=== PATIENT | female | born 1940 | race Caucasian/White ===

== ENCOUNTER 2024-11-01 01:44 | Emergency (ER) | payer MEDICARE, SELFPAY ==
--- NOTE | ~2024-11-01 | CT_ITS ---
CT of the Abdomen and Pelvis: Indication: Abdominal pain Technique: 2.5 mm axial scans were obtained through the abdomen and pelvis following intravenous adm inistration of 100 cc of Omnipaque 350. Dose reduction technique was used on this scan by utilizing a utomated exposure control and iterative reconstruction technique. The dose-length product (DLP) was 5 32.41 mGy-cm. Findings: Scans through the lung bases are unremarkable. Small hepatic cyst present. Mild intrahepatic and extrahepatic biliary dilatation is most likely rela zeferino to prior cholecystectomy. The spleen, pancreas, the adrenal glands are within normal limits. Bila teral benign-appearing renal cystic lesions are present, some which demonstrate single thin septation . There are atherosclerotic calcifications of the aorta. No lymphadenopathy. Prior extensive colectomy with probable enterocolonic anastomosis at the sigmoid colon. Additional sm all bowel anastomosis present. There are dilated loops of small bowel with fecalization of contents w hich are possibly related to the small bowel anastomosis. Findings are compatible with small bowel ob struction. Images through the pelvis were performed. There is a low ventral midline hernia containing a small an terior portion of the urinary bladder as well as one wall segment of the sigmoid colon. Trace pelvic free fluid noted. There is posterior spinal fixation from L4 to 5. Chronic compression fracture of T11 present. Impression: Small bowel obstruction, with transition point possibly related to small bowel anastomosis. Low ventral midline hernia containing and anterior portion of the urinary bladder as well as one wall of a segment of the sigmoid colon. Trace pelvic free fluid. Additional chronic findings, as above. Reviewed, dictated and finalized at [facility]. Impression: Small bowel obstruction, with transition point possibly related to small bowel anastomosis. Low ventral midline hernia containing and anterior portion of the urinary bladd er as well as one wall of a segment of the sigmoid colon. Trace pelvic free fluid. Additional chronic findings, as above.
[2024-11-01 01:45] VITALS: BP 200/86; PULSE 75; RESP 20; TEMP 36.1; O2SAT 96
--- NOTE | 2024-11-01 01:52 | ED_ITS ---
HPI - Abdominal Pain General Chief Complaint: Abdominal Pain Stated Complaint: Abd Pain Time Seen by Provider: 11/01/24 01:52 Source: patient Mode of arrival: ambulatory Limitations: no limitations History of Present Illness HPI narrative: 84 years old white female came to the ED with her from home by private car complaining of abdominal pain started 3-4 hour prior to arrival associated with nausea and vomiting once. History of cholecystectomy, colon resection, hysterectomy. Patient denies any fever or chills. Patient denies radiation of pain, pain get worse with any movement and nothing make it better. Related Data Allergies Allergy/AdvReac Type Severity Reaction Status Date / Time fentanyl Allergy Unknown Unknown Verified 11/01/24 01:59 Penicillins Allergy Unknown Unknown Verified 11/01/24 01:59 Tetanus Vaccines and Toxoid Allergy Unknown Unknown Verified 11/01/24 01:59 Review of Systems 2 Review of Systems: All systems reviewed & are unremarkable except as noted in HPI and below Exam 2 Narrative: General appearance: Well-developed, well-nourished Skin: Normal color Head: Normocephalic, nontraumatic Eyes: Clear conjunctiva ENT: Oropharynx normal, ears normal, nose normal Neck: Supple, nontender Chest and respiratory: Airway patent, no respiratory distress, no accessory muscle use Heart: Regular rate/rhythm Abdomen: Soft, Moderate tenderness right abdomen, guarding and rebound, no organomegaly, quiet bowel sounds Vascular: Normal peripheral pulses, normal capillary refill. Musculoskeletal: Normal range of motion, nontender back Neurologic: Alert and oriented ×3, [employer] is normal as tested, no gross motor deficit Course Consultations Consultation #1: Dr. Summers [facility] at [facility] who accepted patient transfer Date: 11/01/24 Time: 06:34 Vital Signs Vital signs: Vital Signs Temperature 36.1 C L 11/01/24 01:45 Pulse Rate 75 11/01/24 01:45 Respiratory Rate 20 11/01/24 01:45 Blood Pressure 200/86 H 11/01/24 01:45 Pulse Oximetry 96 11/01/24 01:45 Oxygen Delivery Room Air 11/01/24 01:45 Temperature 36.6 C 11/01/24 06:09 Pulse Rate 79 11/01/24 06:09 Respiratory Rate 14 11/01/24 06:09 Blood Pressure 130/53 L 11/01/24 06:09 Pulse Oximetry 98 11/01/24 06:09 Oxygen Delivery Room Air 11/01/24 06:09 MDM - Abdominal Pain MDM Narrative Medical decision making narrative: patient presents with abdominal pain Vital signs showing blood pressure 200/86 otherwise within normal limit Physical examination showing diffuse abdominal tenderness in mainly on the right side with guarding in, healing open wound at the mid abdomen Differential diagnosis include constipation, diverticulitis, colitis, ischemic colitis, urinary tract infection Blood workup today includes CBC, CMP, lipase, troponin showed WBC of 13.8, lactic acid of 2.3 otherwise insignificant abnormalities Urinalysis showed it no evidence of infection EKG on arrival showed normal sinus rhythm at 72 beats per minute with short AR interval, right axis deviation, 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 Diagnosis small-bowel obstruction Transferred to Differential Diagnosis Differential diagnosis: Likely abdominal pain, acute appendicitis, constipation, diverticulitis, pancreatitis and small bowel obstruction Medical Records Attestation: I reviewed the patient's medical records. Lab Data Attestation: I reviewed the patient's lab results. 11/01/24 02:34 11/01/24 02:34 Labs: Lab Results 11/01/24 11/01/24 Range/Units 02:34 05:00 WBC 13.8 H (4.8-10.8) K/mm3 RBC 4.44 (4.20-5.40) M/mm3 Hgb 12.9 (11.7-13.8) g/dL Hct 40.3 (35.0-42.0) % MCV 90.8 (78.0-102.0) fL MCH 29.1 (27.0-31.0) pg MCHC 32.0 (32-36) g/dL RDW 13.2 (11.6-14.4) % Plt Count 150 (150-420) K/mm3 MPV 12.6 H (9.2-11.8) fl Immature Gran % (Auto) 0.5 H (0.0-0.0) % Neut % (Auto) 84.8 H (50.0-70.0) % Lymph % (Auto) 8.4 L (18.0-42.0) % [place] % (Auto) 4.9 (2.0-11.0) % Eos % (Auto) 1.2 (1.0-6.0) % Baso % (Auto) 0.2 (0.0-1.0) % Lymph # (Auto) 1.16 (1.10-4.50) K/mm3 [place] # (Auto) 0.68 (0.10-0.90) K/mm3 Eos # (Auto) 0.17 (0.02-0.50) K/mm3 Baso # (Auto) 0.03 (0.00-0.10) K/mm3 Abs Immat Gran (auto) 0.07 H (0.00-0.00) K/mm3 Absolute Neuts (auto) 11.73 H (1.70-7.20) K/mm3 Absolute Nucleated RBC 0.00 (0.00-0.00) K/mm3 Nucleated RBC % 0.0 (0-0.0) % Sodium 134 L (137-145) mmol/L Potassium 3.9 (3.4-5.0) mmol/L Chloride 103 (98-107) mmol/L Carbon Dioxide 24 (22-30) mmol/L Anion Gap 7 (4-12) mmol/L BUN 16 (7-17) mg/dL Creatinine 0.91 (0.7-1.0) mg/dL Estim Creat Clear Calc 35 ml/min Estimated GFR 59 (59 - ) Glucose 199 H (65-110) mg/dL Calculated Osmolality 285 (285-295) mOsm/kg Lactic Acid 2.3 H (0.4-2.0) mmol/L Calcium 9.0 (8.4-10.2) mg/dL Total Bilirubin 0.7 (0.2-1.3) mg/dL AST 35 (14-36) U/L ALT 32 (6-35) U/L Alkaline Phosphatase 77 (38-126) U/L Troponin I < 0.012 (0.000-0.034) ng/mL Total Protein 7.3 (6.3-8.2) g/dL Albumin 4.3 (3.5-5.1) g/dL Lipase 60 (23-300) U/L Urine Color Light yellow (Yellow) Urine Appearance Clear (Clear) Urine pH 6.0 (5.0-8.0) Ur Specific [place] <= 1.005 L (1.010-1.020) Urine Protein Negative (Negative) Urine Glucose (UA) Trace H (Negative) Urine Ketones Negative (Negative) Ur Blood (Man) Negative (Negative) Urine Nitrate Negative (Negative) Urine Bilirubin Negative (Negative) Urine Urobilinogen 0.2 (0.2-1.0) mg/dL Leukocyte Esterase Rfl Negative (Negative) MAKENNA/UL Imaging Data Radiologist's impression: ITS Impressions Abdomen/Pelvis CT 11/01/24 05:51 Impression: Small bowel obstruction, with transition point possibly related to small bowel anastomosis. Low ventral midline hernia containing and anterior portion of the urinary bladder as well as one wall of a segment of the sigmoid colon. Trace pelvic free fluid. Additional chronic findings, as above. 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
--- NOTE | 2024-11-01 01:53 | ECG_ITS ---
Test Date: 2024-11-01 02:43:04 Measurements Intervals [place] Rate: 72 P: 38 VA: 116 QRS: 95 QRSD: 118 T: 67 QT: 439 QTc: 481 Interpretive Statements SINUS RHYTHM WITH SHORT VA INTERVAL BORDERLINE RIGHT AXIS DEVIATION [QRS AXIS > 90] PROBABLE INFERIOR MYOCARDIAL INFARCTION , PROBABLY OLD [35 ms Q WAVE IN II/aVF] ABNORMAL ECG No previous ECG available for comparison Electronically Signed On 11-01-2024 08:05:15 CDT by Ti Hendrix M.D.
--- OUTSIDE RECORDS SUMMARY | 2024-11-01 01:58 | XMS_ITS | Data Portability ---
Author Organization [facility], [address] [place] [address] [place]rology ([place]) Address [address] 4[address] [place] [address] Care Team Providers Care Deputy Juvenile Officer Name Role Phone CLAUDE WILLS Primary Care Provider Assessment Encounter Date Assessment Date Assessment LastModified by Organization Details LastModified Time 06/05/2024 06/05/2024 Due to her severe pain and her Hx of colon cancer, hernias, bowel obstructions, I would like to do a stat CT abd/pelvis with contrast. Not available 06/05/2024 16:28:52 06/19/2024 06/19/2024 We will try donepezil 5 mg q.h.s. and see her back in 6 weeks. May consider risperidone if not working or if augmentation is needed. terry Not available 06/19/2024 13:06:19 08/10/2024 08/10/2024 We will do the lorazepam b.i.d. at 0.5 mg and see her back as scheduled in 3 months. jessicasana [email or web address] Not available 08/10/2024 14:24:39 10/13/2024 10/13/2024 We will do a wound culture as well as a CBC and a BMP and follow up based on results. She may need ID referral. [email or web address] [email or web address] Not available 10/13/2024 12:03:10 10/28/2024 10/28/2024 Assessment and plan: Chronic non-healing wound. I suspect the mesh is infected. I will need to take her to the operating room for an open wound exploration with removal of the mesh that is exposed. I am trying to minimize the risk of having to remove the entire abdominal wall mesh that was placed in the abdomen many years ago . I have reviewed the CT scan of the abdomen and pelvis and there is air bubbles and possibly mesh exposed underneath the wound. This is never going to heal without removing the foreign object which is the mesh. Patient will do dry dressing changes until I can explore the wound properly with IV sedation local anesthetic. [email or web address] Not available 10/28/2024 12:22:34 Plan of Treatment Reminders Order Date Submit Date Provider Last Modified By Organization Details Last Modified Time Details Appointments Establi shed Patient 20.EST 2024 01:20P M Dr. Claude Wills Not available Not available Not available [facility] .SURG 2024 09:30[facility] Not available Not available Not available [facility] .SURG 2024 09:30A M Dr. Dmitry Roa Not available Not available Not available Nurse Surgery Block 30.SURG 2024 09:[address] M Dr[address] Dmitry Roa Not available Not available Not available Lab CBC w/ auto diff 2024 025 [facility], [address] [place] [address], [id number], 10/14/2024 15:23:26 BMP, serum or plasma 2024 025 [facility], [address] [place] [address], [id number], 10/14/2024 16:18:32 culture , aerobic 2024 025 [facility], [address] [place] [address], [id number], 10/27/2024 04:25:18 Referral None recorde d. Procedures None recorde d. Surgeries None recorde d. Imaging CT, abdomen + pelvis, w/ contras t - Call with results to Jerome stephen cell @ 2023 024 [facility] (Radiology), [facility] [address], [place], [address], 06/06/2024 16:37:08 Medication Orders glimepi ride 1 mg tablet 2024 025 [email or web address] 5 [facility] #[id number], [address], [place], [id number], 10/13/2024 12:02:50 cyclobe nzaprin e 10 mg tablet 2024 025 [facility] #[id number], [address], [place], [phone], 10/13/2024 11:16:28 lorazep am 0.5 mg tablet 2024 025 [facility] #[id number], [address], [place], [phone], 08/10/2024 12:55:15 donepez il 5 mg tablet 2024 025 [facility] #[id number], [address], [place], [id number], 08/10/2024 12:26:41 Patient TargetsNo targets recorded. Patient InstructionsNo instructions recorded. Reason for Referral None Reported. Results Created Date Observation Date Name Description Value Unit Range Abnormal Flag Note LastModifiedBy Organization Detail LastModifiedTime 05/11/2005/11/2024 hemog lobin A1C, finge rstic k fingerstick A1C endo Not Available [facility] [address] [place] [address], [id number], 05/11/2024 16:16:11 05/11/2005/11/2024 hemog lobin A1C, finge rstic k hemoglobin A1C, finger 7.4 %_A1C 4.3 - 5.6 high Not Available [facility] [address] [place] [address], [id number], 05/11/2024 16:16:11 05/11/20 24 05/11/2024 hemog lobin A1C, finge rstic k fingerstick estimated ave [address] Not Available [facility] [address], [place], [address], 05/11/2024 16:16:11 10/14/19 25 10/16/2024 C WOUND wound culture (swab) with gram stain (ne abnormal Print Date/ Time: 10:38 CDT Patie nt: ANDREW R, MELISSA TELLESE Micro biolo gy - Wound s and Tissu es Legen d: c=Cor recte d, F=Res ult Comme nt, S=Nya cepti ble, I=Int ermed iate, R=Res istan t, N/A=N ot Appli cable PROCE DURE: Wound Cultu re (swab ) ACCES VICKY: 369 with Gram Stain [] SOURC E: Wound BODY SITE: Abdom en COLLE CTED DATE/ TIME: 2024 10:37 CDT RECEI RIK DATE/ TIME: 2024 17:18 CDT START DATE/ TIME: 2024 17:18 CDT FREE TEXT SOURC E: Abdom inal wall swab FI NAL REPOR TS Final Repor t [] Verif ied Date/ Time: 10:38 CDT Moder ate Pseud omona s aerug inosa and Organ isms consi stent with xiomy l skin conor isola zeferino inclu ding: Many dipht heroi ds [place] ELIMI NARY REPOR TS Preli minar y Repor t [] Verif ied Date/ Time: 18:16 CDT Moder ate Possi ble Pseud omona s aerug inosa Ident ifica tion and susce ptibi lity to follo w. Many dipht heroi ds Cultu re reinc ubate d Preli minar y Repor t [] Verif ied Date/ Time: 13:58 CDT Moder ate Possi ble Pseud omona s aerug inosa Ident ifica tion and susce ptibi lity to follo w. Cultu re reinc ubate d ST AINS/ PREPA RATIO NS GS [] Verif ied Date/ Time: 2024 23:06 CDT Rare (<1/h pf) neutr ophil s Moder ate (6-30 /hpf) Gram Posit antwan Rods Moder ate (6-30 /hpf) Gram Negat antwan Rods Moder ate (6-30 /hpf) Gram Posit antwan Cocci in pairs , chain s, and clust ers UMANA SCEPT IBILI TY RESUL TS Pseud omona s aerug inosa Antib iotic MINT Cefep zainab Susce ptibl e Cefta zidim e Susce ptibl e Levof loxac in Susce ptibl e Merop enem Susce ptibl e Piper acill in-ta zobac guerrero Susce ptibl e Tobra mycin Susce ptibl e Not Available [place] Only - [facility] [address] [facility], [place], [address], 10/16/2024 11:38:53 10/14/19 25 10/16/2024 C WOUND wound culture (swab) with gram stain (ne abnormal Print Date/ Time: 025 10:37 CDT Patie nt: ANDREW RMELISSA RINE Micro biolo gy - Wound s and Tissu es Legen d: c=Cor recte d, F=Res ult Comme nt, S=Yna cepti ble, I=Int ermed iate, R=Res istan t, N/A=N ot Appli cable PROCE DURE: Wound Cultu re (swab ) ACCES VICKY: 9007 369 with Gram Stain [] SOURC E: Wound BODY SITE: Abdom en COLLE CTED DATE/ TIME: 2024 10:37 CDT RECEI RIK DATE/ TIME: 2024 17:18 CDT START DATE/ TIME: 2024 17:18 CDT FREE TEXT SOURC E: Abdom inal wall swab WV ELIMI NARY REPOR TS Preli minar y Repor t [] Verif ied Date/ Time: 18:16 CDT Moder ate Possi ble Pseud omona s aerug inosa Ident ifica tion and susce ptibi lity to follo w. Many dipht heroi ds Cultu re reinc ubate d Preli minar y Repor t [] Verif ied Date/ Time: 13:58 CDT Moder ate Possi ble Pseud omona s aerug inosa Ident ifica tion and susce ptibi lity to follo w. Cultu re reinc ubate d ST AINS/ PREPA RATIO NS GS [] Verif ied Date/ Time: 2024 23:06 CDT Rare (<1/h pf) neutr ophil s Moder ate (6-30 /hpf) Gram Posit antwan Rods Moder ate (6-30 /hpf) Gram Negat antwan Rods Moder ate (6-30 /hpf) Gram Posit antwan Cocci in pairs , chain s, and clust ers UMANA SCEPT IBILI TY RESUL TS Pseud omona s aerug inosa Antib iotic MINT Cefep zainab Susce ptibl e Cefta zidim e Susce ptibl e Levof loxac in Susce ptibl e Merop enem Susce ptibl e Piper acill in-ta zobac guerrero Susce ptibl e Tobra mycin Susce ptibl e Not Available [place] Only - [facility] [address] [facility], [place], [address], 10/16/2024 11:37:28 10/14/19 25 10/15/2024 C WOUND wound culture (swab) with gram stain (ne abnormal Print Date/ Time: 18:16 CDT Patie nt: ANDREW RMELISSA RINE Micro biolo gy - Wound s and Tissu es Legen d: c=Cor recte d, F=Res ult Comme nt, S=Nya cepti ble, I=Int ermed iate, R=Res istan t, N/A=N ot Appli cable PROCE DURE: Wound Cultu re (swab ) ACCES VICKY: 369 with Gram Stain [] SOURC E: Wound BODY SITE: Abdom en COLLE CTED DATE/ TIME: 2024 10:37 CDT RECEI RIK DATE/ TIME: 2024 17:18 CDT START DATE/ TIME: 2024 17:18 CDT FREE TEXT SOURC E: Abdom inal wall swab WV ELIMI NARY REPOR TS Preli minar y Repor t [] Verif ied Date/ Time: 18:16 CDT Moder ate Possi ble Pseud omona s aerug inosa Ident ifica tion and susce ptibi lity to follo w. Many dipht heroi ds Cultu re reinc ubate d Preli minar y Repor t [] Verif ied Date/ Time: 13:58 CDT Moder ate Possi ble Pseud omona s aerug inosa Ident ifica tion and susce ptibi lity to follo w. Cultu re reinc ubate d ST AINS/ PREPA RATIO NS GS [] Verif ied Date/ Time: 2024 23:06 CDT Rare (<1/h pf) neutr ophil s Moder ate (6-30 /hpf) Gram Posit antwan Rods Moder ate (6-30 /hpf) Gram Negat antwan Rods Moder ate (6-30 /hpf) Gram Posit antwan Cocci in pairs , chain s, and clust ers Not Available [place] Only - [facility] [address] [place] [address], [address], 10/15/2024 19:16:47 10/14/19 25 10/15/2024 C WOUND wound culture (swab) with gram stain (ne abnormal Print Date/ Time: 13:58 CDT Patie nt: MELISSA COLLADO RINE Micro biolo gy - Wound s and Tissu es Legen d: c=Cor recte d, F=Res ult Comme nt, S=Nya cepti ble, I=Int ermed iate, R=Res istan t, N/A=N ot Appli cable PROCE DURE: Wound Cultu re (swab ) ACCES VICKY: 369 with Gram Stain [] SOURC E: Wound BODY SITE: Abdom en COLLE CTED DATE/ TIME: 2024 10:37 CDT RECEI RIK DATE/ TIME: 2024 17:18 CDT START DATE/ TIME: 2024 17:18 CDT FREE TEXT SOURC E: Abdom inal wall swab WV ELIMI NARY REPOR TS Preli minar y Repor t [] Verif ied Date/ Time: 025 13:58 CDT Moder ate Possi ble Pseud omona s aerug inosa Ident ifica tion and susce ptibi lity to follo w. Cultu re reinc ubate d ST AINS/ PREPA RATIO NS GS [] Verif ied Date/ Time: 2024 23:06 CDT Rare (<1/h pf) neutr ophil s Moder ate (6-30 /hpf) Gram Posit antwan Rods Moder ate (6-30 /hpf) Gram Negat antwan Rods Moder ate (6-30 /hpf) Gram Posit antwan Cocci in pairs , chain s, and clust ers Not Available [place] Only - [facility] [address], [address], 10/15/2024 14:58:19 10/14/19 25 10/14/2024 C WOUND wound culture (swab) with gram stain (ne abnormal Print Date/ Time: 2024 23:06 CDT Patie nt: TUCKE R, MELISSA A GISELA RINE Micro biolo gy - Wound s and Tissu es Legen d: c=Cor recte d, F=Res ult Comme nt, S=Nya cepti ble, I=Int ermed iate, R=Res istan t, N/A=N ot Appli cable PROCE DURE: Wound Cultu re (swab ) ACCES VICKY: 369 with Gram Stain [] SOURC E: Wound BODY SITE: Abdom en COLLE CTED DATE/ TIME: 2024 10:37 CDT RECEI RIK DATE/ TIME: 2024 17:18 CDT START DATE/ TIME: 2024 17:18 CDT FREE TEXT SOURC E: Abdom inal wall swab ST AINS/ PREPA RATIO NS GS [] Verif ied Date/ Time: 2024 23:06 CDT Rare (<1/h pf) neutr ophil s Moder ate (6-30 /hpf) Gram Posit antwan Rods Moder ate (6-30 /hpf) Gram Negat antwan Rods Moder ate (6-30 /hpf) Gram Posit antwan Cocci in pairs , chain s, and clust ers Not Available [place] Only - [facility] [address] [facility], [place], [address], 10/15/2024 00:06:17 06/05/20 24 06/05/2024 XR, chest , 1 view No observ ation record ed. Not Available 13:43:10 06/05/20 24 06/05/2024 XR, chest , 1 view No observ ation record ed. Not Available 13:43:10 06/06/20 24 06/06/2024 CT, abdom en + pelvi s, w/ contr ast No observ ation record ed. [email or web address] [facility] [address] [place], [address], 06/21/2024 19:30:54 06/06/20 24 06/06/2024 CT, abdom en + pelvi s, w/ contr ast No observ ation record ed. [facility] [address] [place], [address], 06/16/2024 13:43:59 06/19/19 25 06/05/2024 CT, abdom en + pelvi s, w/ contr ast No observ ation record ed. [facility] (Radiology) [address], [place], [address], 06/19/2024 11:05:03 06/19/1910 0606/05/2024 CT, abdom en + pelvi s, w/ contr ast No observ ation record ed. [facility] (Radiology) [address], [place], [address], 06/19/2024 11:05:03 07/27/19 25 07/27/2024 CT, abdom en + pelvi s, w/ contr ast No observ ation record ed. [facility] - Radiology [address] [place], [address], 08/05/2024 20:04:14 Result Notes None recorded. Problems Name Problem SNOMED Code Status Onset Date Resolution Date Notes Provider Name and Address Organization Details Recorded Time Chronic obstructiv e pulmonary disease 54292484 Active Not Available [facility] 4 14:54:00 Chronic kidney disease stage 3A 622989727 Active Not Available [facility] 4 14:54:12 Type 2 diabetes mellitus 87714516 Active Not Available [facility] 4 14:54:16 Moderate dementia 7504927533728 00 Active 2023 Claude Wills MD [address] [place] [address], [address] , [facility] 4 14:55:09 Adult health examinatio n Active 2023 Claude Wills MD [address] [place] [address], [address] , [facility] 4 14:57:20 History of malignant neoplasm of colon 274146292 Active 2023 Claude Wills MD [address] [place] [address], [address] , [facility] 4 14:58:19 History of malignant neoplasm of ovary 320471491 Active 2023 Claude Wills MD [address] [place] [address], [phone] , [facility] 4 14:58:33 Disorder of kidney due to diabetes mellitus 688570384 Active 2023 Yamilex solorzano, [facility] 4 01:30:51 Primary gonarthros is, bilateral 054769028 Active 2023 Lazara Robison PA-C [address] , [place], [address] , [facility] 4 14:21:54 Allergic rhinitis 68974376 Active 2023 Claude Wills MD [address] , [place], [address] , [facility] 4 15:45:07 Chronic thoracic back pain 0000074180572 03 Active 2023 Claude Wills MD [address] , [place], [address] , [facility] 4 15:45:58 Right lower quadrant pain 818665839 Active 2023 Claude Wills MD [address] , [facility] [place] [place], [address] , [facility] 4 16:14:26 Local infection of wound 76135345 Active 2024 [facility] 5 17:41:35 Generalize d anxiety disorder 79113987 Active 2024 Claude Wills MD [address] [facility], [facility] [place], [address] , [facility] 5 14:08:06 Rectal hemorrhage 12512523 Active 2024 Claude Wills MD [address] , [facility] [place] [place], [address] , [facility] 5 11:14:30 Open wound of abdomen 785627117 Active 2024 Claude Wills MD [address] , [place], [address] , [facility] 11:14:54 Problem Notes None recorded. Procedures Surgical History Date Name Laterality Status Provider Name and Address Organization Details Recorded Time 024 SC Viscosupplementation II completed Zuri Laquita [facility] 04/21/2024 10:06:06 Imaging Results Imaging Date Name Status LastModified by Organiz ation Details LastModified Time 06/05/2024 XR, chest, 1 view completed Information not available 06/16/2024 13:43:10 06/05/2024 XR, chest, 1 view completed Information not available 06/16/2024 13:43:10 06/06/2024 CT, abdomen + pelvis, w/ contrast completed [address] Radiology [address] [place], [address], 06/21/2024 19:30:54 06/06/2024 CT, abdomen + pelvis, w/ contrast completed [facility]iology [address] [place], [address], 06/16/2024 13:43:59 06/05/2024 CT, abdomen + pelvis, w/ contrast completed [facility] (Radiology) [address] [place], [address], 06/19/2024 11:05:03 06/05/2024 CT, abdomen + pelvis, w/ contrast completed [facility] (Radiology) [place], [address], 06/19/2024 11:05:03 07/27/2024 CT, abdomen + pelvis, w/ contrast completed [facility] [address] [place], [address], 08/05/2024 20:04:14 Procedure Notes None recorded. Medical Equipment None Reported. Allergies Allergen ID Allergen Name Allergen Category Reaction Reaction Severity Criticality Documentation Date Start Date Code Code System Note Provider Name and Address Organization Details Recorded Time 1576696 tetanus and diphtheri a toxoids, adsorbed, adult medicatio n anaphylax is Not available Not available 07/17/20232008 41731 UNK React ion: Anaph ylaxi s; Not Available [facility] 4 03:56:42 6654127 codeine medicatio n anaphylax is Not available Not available 07/17/20232007 2670 RxNorm React ion: Anaph ylaxi s; Not Available [facility] 4 03:56:43 1903551 Product containin g penicilli n (product) medicatio n anaphylax is Not available Not available 07/17/20232007 53113 8001 SNOMED React ion: Anaph ylaxi s; Not Available [facility] 4 03:56:43 968335 Cholester ol Managemen t medicatio n Not available Not available Not available 07/15/20232008 49634 96 RxNorm React ion: Other : liver issue s/gisele thly sick; Not Available [facility] 4 21:47:44 719193 wheat preparati on food,medi cation Not available Not available Not available 07/15/20232007 25450 52 RxNorm React ion: Other : exace rbate s diver ticul itis; Comme nt: Wheat ; Not Available [facility] 4 21:47:44 874327 Substance with sulfonami de structure and antibacte rial mechanism of action (substanc e) medicatio n Not available Not available Not available 07/15/20232015 84692 8003 SNOMED Not Available [facility] 4 21:47:46 Medications Name Sig Start Date Stop Date Status Note LastModified by Organization Details LastModified Time cyclobenzap rine 10 mg tablet TAKE 1 TABLET BY MOUTH THREE TIMES DAILY NEEDED active Not Available Not Available No t Available donepezil 5 mg tablet TAKE 1 TABLET BY MOUTH EVERY DAY 08/10 completed Not Available Not Available Not Available Nystop 100,000 unit/gram topical powder APPLY TO AFFECTED AREAS TWICE DAILY X 2 WEEKS THEN CALL PROVIDER FOR FOLLOW UP 02/10 completed Not Available Not Available Not Available omeprazole 40 mg capsule,del ayed release TAKE 1 CAPSULE BY MOUTH EVERY DAY active Not Available Not Available No t Available glimepiride 1 mg tablet TAKE 1 TABLET BY MOUTH EVERY DAY active Not Available Not Available No t Available hydrocortis one 2.5 % topical cream with perineal applicator active Not Available Not Available N ot Available lorazepam 0.5 mg tablet TAKE 1 TABLET BY MOUTH TWICE DAILY NEEDED active Not Available Not Available No t Available OneTouch Ultra Test strips USE TO TEST 3 TIMES DAILY 2023 active Not Available Not Available Not Avai lable montelukast 10 mg tablet TAKE 1 TABLET BY MOUTH EVERY DAY active Not Available Not Available No t Available levofloxaci n 500 mg tablet take one tablet by mouth daily for 21 days 2024 active Not Available Not Available Not Avai lable ketoconazol e 2 % topical cream APPLY THIN LAYER TOPICALLY TO THE AFFECTED AREA TWICE DAILY NEEDED active Not Available Not Available No t Available metformin ER 500 mg tablet,exte nded release 24 hr TAKE 1 TABLET BY MOUTH DAILY 02/10 completed Not Available Not Available Not Available memantine 10 mg tablet TAKE 1 TABLET BY MOUTH TWICE DAILY 05/11 completed Not Available Not Available Not Available memantine 5 mg tablet TAKE 1 TABLET BY MOUTH TWICE DAILY 02/10 completed Not Available Not Available Not Available OneTouch Ultra2 Meter USE DIRECTED TO TEST SUGARS active Not Available Not Available No t Available OneTouch Delica Plus Lancet 33 gauge USE TO TEST FOUR TIMES DAILY active Not Available Not Available No t Available Vitals Date Recorded Body height Body mass index (BMI) Body weight Body temperature Heart rate Oxygen saturation Oxygen saturation in Arterial blood by Pulse oximetry Systolic blood pressure Diastolic blood pressure Provider Name and Address Organization Details Last Updated DateTime 4 147.32 cm 30.4 kg/m2 30416.0 5 g 97.7 [degF] 95 /min 94 % 94 % 154 mm[Hg] 92 mm[Hg] Carolina Carter [facility] 4 15:27:51 Date Recorded Body height Body mass index (BMI) Body weight Body temperature Heart rate Oxygen saturation Oxygen saturation in Arterial blood by Pulse oximetry Systolic blood pressure Diastolic blood pressure Provider Name and Address Organization Details Last Updated DateTime 5 147.32 cm 29.5 kg/m2 22129.5 2 g 98.1 [degF] 81 /min 98 % 98 % 144 mm[Hg] 88 mm[Hg] [facility] 5 12:00:14 Date Recorded Body height Body mass index (BMI) Body weight Body temperature Heart rate Oxygen saturation Oxygen saturation in Arterial blood by Pulse oximetry Systolic blood pressure Diastolic blood pressure Provider Name and Address Organization Details Last Updated DateTime 5 147.32 cm 30.3 kg/m2 24676.8 9 g 97.5 [degF] 80 /min 97 % 97 % 136 mm[Hg] 78 mm[Hg] Grace Lisa [facility] 5 12:25:07 Date Recorded Body height Body temperature Heart rate Oxygen saturation Oxygen saturation in Arterial blood by Pulse oximetry Body mass index (BMI) Body weight Systolic blood pressure Diastolic blood pressure Provider Name and Address Organization Details Last Updated DateTime 5 147.32 cm 99.7 [degF] 84 /min 97 % 97 % 29.7 kg/m2 80815.1 2 g 138 mm[Hg] 78 mm[Hg] [facility] 5 10:44:26 Date Recorded Body height Body mass index (BMI) Body weight Systolic blood pressure Diastolic blood pressure Provider Name and Address Organization Details Last Updated DateTime 10/28/2024 147.32 cm 30.5 kg/m2 88663.85 g 172 mm[Hg] 75 mm[Hg] Zuleima Ahn bao [facility] 5 11:56:51 Social History None recorded. Functional Status None recorded. Mental Status None recorded. Family History Nothing Reported. Medical History No medical history recorded. Gynecological HistoryNo gynecological history recorded. Obstetrics History GPAL:G 0 P 0 0 0 0 Past Encounters Encounter ID Performer Location Encounter Start Date Encounter Closed Date Diagnosis/Indication Diagnosis SNOMED-CT Code Diagnosis ICD10 Code Diagnosis Note [id number] Claude Wills MD [facility] ([place]) [address] [place] [address] 02/11/2024 14:19:21 02/11/2024 17:09:21 Chronic obstructive pulmonary disease 47135502 J44.9 Chronic ki dney disease stage 3A 651162719 N18.31 Type 2 nova betes mellitus 40050243 E11.65 Moderate dementia 612149 1847 65173 F03.B3 Adult heal th examination 423958462 Z00.00 History of malignant neoplasm of colon 651303266 Z85.038 History of malignant neoplasm of ovary 867090742 Z85.43 Problem, a bnormal examination 04375727 Z00.01 Additional diagnosis detail: Abnormal physical evaluation Disorder o f kidney due to diabetes mellitus 966055658 E11.22 Additional diagnosis detail: Chronic kidney disease due to diabetes mellitus Long-term current use of drug therapy 885000361 Z79.899 Additional diagnosis detail: Other long term care pharmacist (current) drug therapy [id number] JULIA Peterson [facility] ([place]) [address] [place] [address], [place] [address] 04/15/2024 14:02:16 04/15/2024 18:44:17 Primary gonarthrosis, bilateral 215989849 M17.0 PROCEDURE: The risks and benefits of viscosuppl ementation were again reviewed with the patient, and the patient agreed with the plan to begin the series. The risks and benefits of the injection were also discussed today. The anterior lateral aspect of the patient's bilateral knees were prepped in sterile fashion using Betadine and alcohol swabs. . Euflexxa 2 mL was then injected intraartic ularly without difficulty into the patient's bilateral knees A Band-Aid was placed over the injection site. The patient tolerated the procedure well. There were no complicati ons. [id number] Iwona crump MD [facility] ([place]) [address] [place] [address] 04/21/2024 14:26:10 04/21/2024 15:33:59 Primary gonarthrosis, bilateral 134396107 M17.0 [id number] JULIA Peterson [facility] Orthoped[place] [facility] ([place]) [address] [facility],[address] [place] [address], [place] [address] 04/29/2024 14:05:24 04/29/2024 18:31:25 Primary gonarthrosis, bilateral [id number] M17.0 PROCEDURE: The risks and benefits of viscosuppl ementation were again reviewed with the patient, and the patient agreed with the plan to begin the series. The risks and benefits of the injection were also discussed today. The anterior lateral aspect of the patient's bilateral knees were prepped in sterile fashion using Betadine and alcohol swabs. . Euflexxa 2 mL was then injected intraartic ularly without difficulty into the patient's bilateral knees A Band-Aid was placed over the injection site. The patient tolerated the procedure well. There were no complicati ons. [id number] Claude Wills MD [address] [address] 05/11/2024 15:07:57 05/11/2024 16:22:26 Type 2 diabetes mellitus [id number] E11.65 Gastroesop hageal reflux disease [id number] K21.9 Allergic rhinitis 907191 04 J30.9 Chronic th oracic back pain [id number] 45080 M54.6 G89.29 Long-term current use of drug therapy [id number] Z79.899 Additional diagnosis detail: Other long term care pharmacist (current) drug therapy [id number] Claude Wills MD [address] [address] 06/05/2024 15:02:13 06/05/2024 16:33:25 Right lower quadrant pain [id number] R10.31 [id number] Claude Wills MD [address] [address] 06/19/2024 11:44:33 06/19/2024 12:57:07 Moderate dementia [id number] 84517 F03.B3 [id number] Claude Wills MD [address] [address] 08/10/2024 12:02:55 08/10/2024 14:23:43 Moderate dementia [id number] 70844 F03.B3 Generalize d anxiety disorder [id number] F41.1 [id number] Claude Wills MD [facility]) [address] [place] [address] 10/13/2024 10:03:25 10/13/2024 11:31:31 Rectal hemorrhage [id number] K62.5 Open wound of abdomen 73 [id number] S31.109D Type 2 nova betes mellitus [id number]|2024-11-01 07:23:53|2024-11-01 07:23:53|PC.NURSE||||"Call placed back to [facility] for ETA, pt becoming more nauseated again, order obtained from Dr Trujillo for severe nausea."
--- OUTSIDE RECORDS SUMMARY | 2024-11-01 01:59 | XMS_ITS | Clinical Summary ---
Author Organization [facility] Address [address] [place] [address] Care Team Providers Care Autopsy Pathologist Name Role Phone Claude Hernandez MD Primary Care Provider [phone] [phone] Allergies Active Allergy Reactions Criticality Noted Date Comments Codeine Anaphylaxis High 03/08/2021 Penicillins Anaphylaxis High 03/08/2021 Sulfa Antibiotics Unknown 03/08/2021 Medications cyclobenzaprine 10 MG tablet 02/28/2021 Active omeprazole 40 MG capsule Take 40 mg by mouth daily. 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 Encounters Date Type Department Care Team Description 10/27/2024 10:00 AM CDT - 10/27/2024 11:59 PM CDT Hospital Encounter [facility] [address] [place] [address] Kulwant Vasquez MD Discharge Disposition: Home or Self Care (Routine Discharge) 10/27/2024 Travel from Last 3 Months Social History Tobacco Use Types Packs/Day Years Used Date Smoking Tobacco: Never Smokeless Tobacco: Never Comments Unknown Sex and Gender Information Value Date Recorded Sex Assigned at Not on file Legal Sex Female 4:53 PM CDT Gender Identity Not on file Sexual Orientation Not on file Last Filed Vital Signs Vital Sign Reading Time Taken Comments Blood Pressure 183/78 03/08/2021 2:46 PM CDT Pulse 84 03/08/2021 2:46 PM CDT Temperature 36.8 C (98.2 F) 03/08/2021 2:46 PM CDT Respiratory Rate - - Oxygen Saturation 99% 03/08/2021 2:46 PM CDT Inhaled Oxygen Concentration - - Weight 68.3 kg (150 lb 9.6 oz) 03/08/2021 2:46 P M CDT Height - - Body Mass Index - - Plan of Treatment Health Maintenance Due Date Last Done Comments DTaP, Tdap and Td Vaccines ( 1 - Tdap) 1960 Pneumococcal Vaccine: 50+ Ye ars (1 of 1 - PCV) 08/25/1991 Zoster Vaccines (1 of 2) 08/25/1991 Annual Medicare Wellness Visit 2006 Dexa Scan (General) 2006 RSV Immunization or 60+ Years (1 - 1-dose 75+ series) 2016 COVID-19 Vaccine (2023-2 5 season) 2024 Meningococcal B Vaccine Aged Out No l onger eligible based on patient's age to complete this topic Meningococcal Vaccine Aged Out No lianna miguel ángel eligible based on patient's age to complete this topic RSV Immunizations Under 20 Months Aged Out No longer eligible based on patient's age to complete this topic Procedures Procedure Name Priority Date/Time Associated Diagnosis Comments CT ABD+PEL W CON STAT 10/27/2024 10:2 9 AM CDT Open wound of abdominal wall with complication, subsequent encounter Local infection of the skin and subcutaneous tissue, unspecified from Last 3 Months Results * CT ABD+PEL W CON (10/27/2024 10:29 AM CDT) Anatomical Region Laterality Modality Abdomen Computed Tomogra phy 10/27/2024 11:1 4 AM CDT Impressions 10/27/2024 11:24 AM CDT IMPRESSION: 1. No acute intra-abdominal or intrapelvic process identified. 2. Small nonspecific collection in the anterior abdominal wall as described. Clinical correlation required. 3. Additional chronic/nonurgent findings as described. Ordered By: KULWANT VASQUEZ Interpreted By: Dean Potts MD, 10/27/2024 11:14 AM Narrative 10/27/2024 11:24 AM CDT [place] [address] [facility] [place] [address] Examination: CT of the abdomen and pelvis with contrast. Exam time: 1025 hours. Clinical history: Draining wound of the anterior abdominal wall. 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 Prior cholecystectomy, hysterectomy and lumbar fusion. Comparison: 06/05/2024. Technique: Following the administration of intravenous contrast, spiral scanning was performed through the abdomen and pelvis. Coronal and sagittal reconstructions were performed from the data set. A dose lowering technique was used for this procedure, which may include, but is not limited to, dose reduction techniques, automated exposure control, the use of iterative reconstruction and ALARA/Image Gently techniques. Findings: Minor scarring at the lung bases is again evident. Allowing for respiratory motion, the lung bases are otherwise clear. No pleural effusions are seen. Cholecystectomy is again evident with clips in the gallbladder fossa. Mild biliary ductal prominence is compatible with a combination of post cholecystectomy and senescent change. Hepatic and bilateral renal cysts are again evident and require no further workup or surveillance. The liver, spleen, pancreas, adrenals and kidneys are otherwise unremarkable. The urinary bladder is nondistended. Small suprapubic hernia is again demonstrated containing a portion of the urinary bladder and now fat and a portion of the sigmoid colon as well. The uterus is not identified, compatible with the history. Changes of subtotal colectomy with ileosigmoid anastomosis again evident. Enteroenteric anastomosis in the mid abdomen again evident. There is no ascites, lymphadenopathy or bowel distention. The caliber of the abdominal aorta is normal. Changes of interbody and posterior bill and pedicle screw fusion at L4-5 again evident. The hardware appears intact. There is stable moderate wedge compression deformity of T11 on sagittal reconstruction. Small collection is now present deep to the umbilicus and anterior to the fascia extending to the left of midline. This measures approximately 5 x 1 cm in the axial plane. Rim enhancement of the collection and some gas bubbles within it are objectively nonspecific given the open nature of the wound. Clinical correlation is required. No other discrete abdominal wall abnormality is identified. Procedure Note Dean Potts MD - 10/27/2024 [place] [address] [facility] [place] [id number] Examination: CT of the abdomen and pelvis with contrast. Exam time: 1025 hours. Clinical history: Draining wound of the anterior abdominal wall. Statuspost subtotal colectomy with ileocolic anastomosis for cancer in 2017.Prior cholecystectomy, hysterectomy and lumbar fusion. Comparison: 06/05/2024. Technique: Following the administration of intravenous contrast, spiralscanning was performed through the abdomen and pelvis. Coronal andsagittal reconstructions were performed from the data set. A dose loweringtechnique was used for this procedure, which may include, but is notlimited to, dose reduction techniques, automated exposure control, the useof iterative reconstruction and ALARA/Image Gently techniques. Findings: Minor scarring at the lung bases is again evident. Allowing forrespiratory motion, the lung bases are otherwise clear. No pleuraleffusions are seen. Cholecystectomy is again evident with clips in thegallbladder fossa. Mild biliary ductal prominence is compatible with acombination of post cholecystectomy and senescent change. Hepatic andbilateral renal cysts are again evident and require no further workup orsurveillance. The liver, spleen, pancreas, adrenals and kidneys areotherwise unremarkable. The urinary bladder is nondistended. Smallsuprapubic hernia is again demonstrated containing a portion of theurinary bladder and now fat and a portion of the sigmoid colon as well.The uterus is not identified, compatible with the history. Changes ofsubtotal colectomy with ileosigmoid anastomosis again evident.Enteroenteric anastomosis in the mid abdomen again evident. There is noascites, lymphadenopathy or bowel distention. The caliber of the abdominalaorta is normal. Changes of interbody and posterior bill and pedicle screwfusion at L4-5 again evident. The hardware appears intact. There is stablemoderate wedge compression deformity of T11 on sagittal reconstruction.Small collection is now present deep to the umbilicus and anterior to thefascia extending to the left of midline. This measures approximately 5 x 1cm in the axial plane. Rim enhancement of the collection and some gasbubbles within it are objectively nonspecific given the open nature of thewound. Clinical correlation is required. No other discrete abdominal wallabnormality is identified. IMPRESSION: 1. No acute intra-abdominal or intrapelvic process identified. 2. Small nonspecific collection in the anterior abdominal wall asdescribed. Clinical correlation required. 3. Additional chronic/nonurgent findings as described. Ordered By: KULWANT VASQUEZ Interpreted By: Dean Potts MD, 10/27/2024 11:14 AM Kulwant Vasquez MD CT Final Result from Last 3 Months Insurance [employer] Care Teams Autopsy Pathologist Relationship Specialty Start Date End Date Claude Hernandez MD [address] [place] [address] PCP - General FAMILY PRACTICE 11/02/20
[2024-11-01 02:15] VITALS: BP 187/95; PULSE 80; RESP 20; O2SAT 97
[2024-11-01] MEDS: ONDANSETRON INJ 4 MG/2 ML VIAL IV PUSH ×2 (02:17→06:45)
[2024-11-01] MEDS: SODIUM CHLORIDE 0.9% IV 1,000 ML 500 ML IV CONT (02:17)
[2024-11-01] MEDS: MORPHINE SULFATE (*CRX) 4 MG/ML INJ IV PUSH (02:18)
[2024-11-01 02:45] LABS: Basophils Absolute Auto 0.03 K/mm3 (0.00-0.10); Basophils Percent Auto 0.2 % (0.0-1.0); Eosinophils Absolute Auto 0.17 K/mm3 (0.02-0.50); Eosinophils Percent Auto 1.2 % (1.0-6.0); Hematocrit 40.3 % (35.0-42.0); Hemoglobin 12.9 g/dL (11.7-13.8); Immature Granulocyte Absolute 0.07 K/mm3 (0.00-0.00); Immature Granulocyte Percent A 0.5 % (0.0-0.0); Lymphocytes Absolute Auto 1.16 K/mm3 (1.10-4.50); Lymphocytes Percent Auto 8.4 % (18.0-42.0); Mean Corpuscular Hemoglobin 29.1 pg (27.0-31.0); Mean Corpuscular Volume 90.8 fL (78.0-102.0); Mean Platelet Volume 12.6 fl (9.2-11.8); Monocytes Absolute Auto 0.68 K/mm3 (0.10-0.90); Monocytes Percent Auto 4.9 % (2.0-11.0); Neutrophils Absolute Auto 11.73 K/mm3 (1.70-7.20); Neutrophils Percent Auto 84.8 % (50.0-70.0); Platelet Count Result 150 K/mm3 (150-420); Red Blood Count 4.44 M/mm3 (4.20-5.40); Red Cell Distribution Width 13.2 % (11.6-14.4); White Blood Count 13.8 K/mm3 (4.8-10.8)
[2024-11-01 03:00] VITALS: BP 143/59; PULSE 75; RESP 18; O2SAT 95
[2024-11-01 03:14] LABS: Alanine Aminotransferase 32 U/L (6-35); Albumin Level 4.3 g/dL (3.5-5.1); Alkaline Phosphatase 77 U/L (38-126); Anion Gap 7 mmol/L (4-12); Aspartate Amino Transferase 35 U/L (14-36); Bilirubin,Total 0.7 mg/dL (0.2-1.3); Blood Urea Nitrogen 16 mg/dL (7-17); Carbon Dioxide 24 mmol/L (22-30); Chloride 103 mmol/L (98-107); Estimated CRCL calculation 35 ml/min; Estimated Glomerular Filt Rate 59; Glucose 199 mg/dL (65-110); Lipase 60 U/L (23-300); Osmolality Calculated 285 mOsm/kg (285-295); Potassium 3.9 mmol/L (3.4-5.0); Sodium 134 mmol/L (137-145); Total Protein 7.3 g/dL (6.3-8.2)
[2024-11-01 03:15] LABS: Lactic Acid Reflex 2.3 mmol/L (0.4-2.0)
[2024-11-01 03:31] LABS: Troponin I < 0.012 ng/mL (0.000-0.034)
[2024-11-01 03:50] VITALS: BP 150/73; PULSE 79; RESP 18; O2SAT 95
--- NOTE | 2024-11-01 03:51 | PC.NURSE ---
Pt back from CT, informed pt and spouse about wait times for results. Pt resting, lights dimmed, call lima at side. No c/o or needs at this time.
[2024-11-01 04:43] LABS: Reflex Lactic Acid Yes or No Add Lactic
--- NOTE | 2024-11-01 05:00 | PC.NURSE ---
Pt to BSC and back to bed,urine taken to lab, still awaiting CT scan results. Pt resting.
--- NOTE | 2024-11-01 06:06 | PC.NURSE ---
CT report back, pt and spouse want transfer to her surgeon at [facility]. Call placed for surgeon.
[2024-11-01 06:09] VITALS: BP 130/53; PULSE 79; RESP 14; TEMP 36.6; O2SAT 98
[2024-11-01] MEDS: SODIUM CHLORIDE 0.9% IV 1,000 ML 100 ML IV CONT (06:30)
--- NOTE | 2024-11-01 06:33 | PC.NURSE ---
Informed pt and spouse on POC and acceptance by surgeon. Informed will have to await callback for bed assignment. Pt resting, remains pain free and no n/v at this time. VSS.
[2024-11-01 06:46] LABS: Add Urine Microscopic? NO; Appearance Urine Clear (Clear); Bilirubin Urine Negative (Negative); Blood Urine Negative (Negative); Color Urine Light Yellow (Yellow); Glucose Urine UA Trace (Negative); Ketones Urine Negative (Negative); Leukocyte Esterase Ur Negative LEU/UL (Negative); Nitrate Urine Negative (Negative); Protein Urine Negative (Negative); Specific Grav Ur <= 1.005 (1.010-1.020); Urobilinogen Urine 0.2 mg/dL (0.2-1.0)
[2024-11-01] MEDS: diphenhydrAMINE HCl INJ 50 MG/ML VIAL 25 MG IV PUSH (07:22)
[2024-11-01 07:32] VITALS: BP 137/77; PULSE 73; RESP 18; TEMP 36.7; O2SAT 95
== END 2024-11-01 07:34 | disposition short-term general hospital (02) ==
PROVIDERS: Emergency Medicine; Emergency Provider Family Medicine; PCP Family Medicine
DX: K56.609 Unspecified intestinal obstruction, unspecified as to partial versus complete obstruction (principal)
CPT/HCPCS: 36415; 74177; 80053; 81003; 83605; 83690; 84484; 85025; 93005; 96361; 96374; 96375; 96376; 99285; J1200; J2270; J2405; J7030; Q9967

== ENCOUNTER 2025-03-16 16:30 | Emergency (ER) | payer MEDICARE, SELFPAY ==
--- NOTE | ~2025-03-16 | CT_ITS ---
EXAMINATION: CT brain wo con DATE: 03/16/2025 17:51 INDICATION: Mental status changes TECHNIQUE: Computed tomography (CT) of the head was performed without intravenous contrast. Sagittal and coronal reconstructions were performed. The mA was adjusted according to patient size. Iterative reconstruction technique was employed. The dose-length product was 529.67 mGy-cm. COMPARISON: None FINDINGS: Small old infarcts in the right basal ganglia involving extending between the anterior limb of the internal capsule and the lentiform nucleus and the second at the inferior aspect of the lentiform nucleus and subinsular white matter. No acute intracranial hemorrhage, acute infarction or abnormal extra axial fluid collection. There is mild scattered white matter hypoattenuation consistent with chronic small vessel ischemic disease. Symmetric prominence of the sulci and ventricles consistent with mild to moderate age-appropriate diffuse cerebral volume loss. No mass/mass effect. Mild mucosal thickening in the right maxillary and bilateral ethmoid sinuses. The orbits and mastoid air cells are normal. IMPRESSION: 1. 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 No acute intracranial process. 2. Age-related changes including moderate diffuse on loss and mild scattered white matter hypoattenuation consistent with chronic small vessel ischemic disease. Reviewed, dictated and finalized at location A. IMPRESSION: 1. 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 No acut e intracranial process. 2. Age-related changes including moderate diffuse on loss and mild scattered wh ite matter hypoattenuation consistent with chronic small vessel ischemic diseas e.
[2025-03-16 16:30] VITALS: BP 145/63; PULSE 83; RESP 20; TEMP 36.7; O2SAT 98
--- OUTSIDE RECORDS SUMMARY | 2025-03-16 16:34 | XMS_ITS | Clinical Summary ---
Author Organization [facility] Address [facility] [place] [address] Care Team Providers Care Wall Scraper Name Role Phone Claude Hernandez MD Primary Care Provider [phone] [phone] Allergies Active Allergy Reactions Criticality Noted Date Comments Codeine Anaphylaxis High 03/08/2021 Penicillins Anaphylaxis High 03/08/2021 Sulfa Antibiotics Unknown 03/08/2021 Medications cyclobenzaprine 10 MG tablet 02/28/2021 Active omeprazole 40 MG capsule Take 40 mg by mouth daily. 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 Social History Tobacco Use Types Packs/Day Years [...] - 1-dose 75+ series) 2016 COVID-19 Vaccine ( - 2023-2 5 season) 2025 Meningococcal B Vaccine Aged Out No l onger eligible based on patient's age to complete this topic Meningococcal Vaccine Aged Out No lianna miguel ángel eligible based on patient's age to complete this topic RSV Immunizations Under 20 Months Aged Out No longer eligible based on patient's age to complete this topic Insurance [employer] MEDICARE Care Teams Wall Scraper Relationship Specialty Start Date End Date Claude Hernandez MD [address] [place] [address] PCP - General FAMILY PRACTICE 11/02/20
--- NOTE | 2025-03-16 17:05 | ED.PSYCH ---
HPI - Psych General Chief Complaint: Psychiatric Symptoms Stated Complaint: altered mental status Time Seen by Provider: 03/16/25 17:05 Source: patient, family and EMS Mode of arrival: ambulatory Limitations: no limitations History of Present Illness HPI Narrative: 84-year-old female with a history of cholecystectomy, colon resection, hysterectomy, small-bowel obstruction presents to the ED with -- memory loss for the past 2 years --psychotic behavior for the past 3 years. She has called the local police on multiple occasions she is brought in by EMS for -- altered mental status. Patient is confused. she states that at someone dropped off a baby in her house and asked her to take care of it. She then called the police who advised her to come to the ED for mental evaluation . -- patient has a draining wound around her umbilicus which is foul smelling. Discussed with the patient's . Patient has had memory loss and psychotic behavior off and on for the past 2 to 3 years. never wanted the patient to go to the hospital. She was brought in the hospital by EMS as per police orders. MD complaint: altered mental status ( Patient has chronic psychotic behavior and altered mental status.) Onset (ago): unknown Duration: constant History of same: Yes Relieving factors: none Exacerbating factors: none Associated psychiatric symptoms: delusions Associated symptoms: confusion Treatments prior to arrival: none Details of plan: denies suicidal or homicidal ideation. Related Data Home Medications ?Medication ?Instructions ?Recorded ?Confirmed ?Last Taken ?Type glimepiride 1 mg tablet mg 03/16/25 Unknown History montelukast 10 mg tablet mg 03/16/25 Unknown History omeprazole 40 mg capsule,delayed mg 03/16/25 Unknown History release Allergies Allergy/AdvReac Type Severity Reaction Status Date / Time fentanyl Allergy Unknown Unknown Verified 03/16/25 18:21 Penicillins Allergy Unknown Unknown Verified 03/16/25 18:21 Tetanus Vaccines and Toxoid Allergy Unknown Unknown Verified 03/16/25 18:21 Review of Systems Review of Systems: All systems reviewed & are unremarkable except as noted in HPI and below Constitutional: Constitutional: Reports as per HPI and Reports no additional constitutional complaints Eyes: Eyes: Reports as per HPI and Reports no additional eye complaints ENT: Reports system reviewed and no additional complaints, except as documented and Reports as per HPI Cardiovascular: Cardiovascular: Reports as per HPI and Reports no additional cardiovascular complaints Respiratory: Respiratory: Reports as per HPI and Reports no additional respiratory complaints Gastrointestinal: Gastrointestinal: Reports as per HPI and Reports no additional gastrointestinal complaints Genitourinary: Genitourinary: Reports no additional female genitourinary complaints Musculoskeletal: Musculoskeletal: Reports no additional musculoskeletal complaints and Reports as per HPI Integumentary/Breasts: Comments: nonhealing midline abdominal wound with constant drainage for many years Neurologic: Reports system reviewed and no additional complaints, except as documented and Reports as per HPI Psychiatric: Comments: patient is not oriented to time. Patient is delusional. Denies any hallucinations. Denied any suicidal or homicidal ideation. Even though she is delusional and the patient is able to carry on her ADLs at home. Endocrine: Endocrine: Reports no additional endocrine complaints Hematologic/Lymphatic: Hematologic/Lymphatic: Reports no additional hematologic/lymphatic complaints Allergic/Immunologic: Allergic/Immunologic: Reports no additional allergic/immunologic complaints [facility] Past Medical History Medical History (Updated 03/16/25 @ 18:44 by Arik Larson MD) Dementia Surgical History Surgical History (Updated 03/16/25 @ 18:02 by Arik Larson MD) H/O: hysterectomy History of colon resection History of cholecystectomy Course Course Emergency Course: altered mental status-- CT of the head did not show any acute findings. Patient is noted to have urinary tract infection. Patient has dementia with psychotic symptoms. Hyperglycemia urinary tract infection-- patient is prescribed Cipro. chronic abdominal wall wound Vital Signs Vital signs: Vital Signs Temperature 36.7 C 03/16/25 16:30 Pulse Rate 83 03/16/25 16:30 Respiratory Rate 03/16/25 16:30 Blood Pressure 145/63 H 03/16/25 16:30 Pulse Oximetry 98 03/16/25 16:30 Oxygen Delivery Room Air 03/16/25 16:30 Temperature 36.7 C 03/16/25 16:30 Pulse Rate 83 03/16/25 16:30 Respiratory Rate 03/16/25 16:30 Blood Pressure 145/63 H 03/16/25 16:30 Pulse Oximetry 98 03/16/25 16:30 Oxygen Delivery Room Air 03/16/25 16:30 MDM - Psych MDM Narrative Medical decision making narrative: Dementia with psychotic symptoms altered mental status urinary tract infection hyperglycemia Differential Diagnosis Differential diagnosis: Likely chronic schizophrenia and bipolar disorder Medical Records Attestation: I reviewed the patient's medical records. Lab Data Attestation: I reviewed the patient's lab results. 03/16/25 17:28 03/16/25 17:28 Labs: Lab Results 03/16/25 03/16/25 03/16/25 Range/Units 17:13 17:14 17:28 WBC 5.7 (4.8-10.8) K/mm3 RBC 3.87 L (4.20-5.40) M/mm3 Hgb 11.3 L (11.7-13.8) g/dL Hct 35.7 (35.0-42.0) % MCV 92.2 (78.0-102.0) fL MCH 29.2 (27.0-31.0) pg MCHC 31.7 L (32-36) g/dL RDW 14.6 H (11.6-14.4) % Plt Count 147 L (150-420) K/mm3 MPV 11.9 H (9.2-11.8) fl Immature Gran % (Auto) 0.2 H (0.0-0.0) % Neut % (Auto) 61.0 (50.0-70.0) % Lymph % (Auto) 27.2 (18.0-42.0) % Rankin % (Auto) 6.7 (2.0-11.0) % Eos % (Auto) 4.4 (1.0-6.0) % Baso % (Auto) 0.5 (0.0-1.0) % Lymph # (Auto) 1.54 (1.10-4.50) K/mm3 Rankin # (Auto) 0.38 (0.10-0.90) K/mm3 Eos # (Auto) 0.25 (0.02-0.50) K/mm3 Baso # (Auto) 0.03 (0.00-0.10) K/mm3 Abs Immat Gran (auto) 0.01 H (0.00-0.00) K/mm3 Absolute Neuts (auto) 3.45 (1.70-7.20) K/mm3 Absolute Nucleated RBC 0.00 (0.00-0.00) K/mm3 Nucleated RBC % 0.0 (0-0.0) % Sodium 141 (137-145) mmol/L Potassium 4.4 (3.4-5.0) mmol/L Chloride 104 (98-107) mmol/L Carbon Dioxide 26 (22-30) mmol/L Anion Gap 11 (4-12) mmol/L BUN 14 (7-17) mg/dL Creatinine 0.99 (0.7-1.0) mg/dL Estim Creat Clear Calc 27 ml/min Estimated GFR 54 L (59 - ) Glucose 282 H (65-110) mg/dL Calculated Osmolality 302 H (285-295) mOsm/kg Lactic Acid 2.5 H (0.4-2.0) mmol/L Calcium 9.3 (8.4-10.2) mg/dL Magnesium 2.2 (1.6-2.3) mg/dL Total Bilirubin 0.5 (0.2-1.3) mg/dL AST 34 (14-36) U/L ALT 28 (6-35) U/L Alkaline Phosphatase 72 (38-126) U/L Ammonia < 9 L (9-30) umol/L Total Creatine Kinase 164 H (30-135) U/L Total Protein 7.6 (6.3-8.2) g/dL Albumin 4.2 (3.5-5.1) g/dL Lipase 54 (23-300) U/L TSH 0.219 L (0.465-4.680) uIU/mL Urine Color Yellow (Yellow) Urine Appearance Sl cloudy A (Clear) Urine pH 6.0 (5.0-8.0) Ur Specific [place] 1.020 (1.010-1.020) Urine Protein Negative (Negative) Urine Glucose (UA) 2+ H (Negative) Urine Ketones Negative (Negative) Ur Blood (Man) Trace-intact H (Negative) Urine Nitrate Negative (Negative) Urine Bilirubin Negative (Negative) Urine Urobilinogen 0.2 (0.2-1.0) mg/dL Leukocyte Esterase Rfl 2+ H (Negative) MAKENNA/UL Urine RBC 3-5 H (0-2) /hpf Urine WBC 21-30 H (0-3) /hpf Ur Squamous Epith Cells Few (Few) /hpf Urine Bacteria 2+ H (None) /hpf Urine Opiates Screen Negative (Negative) Urine Methadone Screen Negative (Negative) Acetaminophen < 10 L (10-30) ug/mL Ur Barbiturates Screen Negative (Negative) Ur Phencyclidine Scrn Negative (Negative) Ur Amphetamine Screen Negative (Negative) U Benzodiazepines Scrn Negative (Negative) Urine Cocaine Screen Negative (Negative) U Cannabinoids Screen Negative (Negative) Ethyl Alcohol < 10 (<10) mg/dL Discharge Plan Discharge Clinical Impression: Dementia with psychosis, Hyperglycemia Urinary tract infection Qualifiers: Urinary tract infection type: site unspecified Hematuria presence: without hematuria Qualified Code(s): N39.0 - Urinary tract infection, site not specified Patient Disposition: Home Condition: Stable Instructions: Antibiotic Form, Urinary Tract Infection in Women (DC), Dementia (ED) Patient Language: Vietnamese Prescriptions: New ciprofloxacin HCl 250 mg tablet 250 mg PO Q12H Qty: 10 0RF No Action omeprazole 40 mg capsule,delayed release(DR/EC) glimepiride 1 mg tablet montelukast 10 mg tablet Follow-up/Referrals: David,Claude Flores MD [Primary Care Provider, General Surgery] Time of Disposition: 18:43
--- NOTE | 2025-03-16 17:13 | ECG_ITS ---
Test Date: 2025-03-16 17:26:33 Measurements Intervals [place] Rate: 84 P: 59 [place]: 129 QRS: -37 QRSD: 121 T: 4 QT: 391 QTc: 464 Interpretive Statements SINUS RHYTHM LEFT AXIS DEVIATION INTRAVENTRICULAR CONDUCTION DELAY VOLTAGE CRITERIA FOR LVH POSSIBLE SEPTAL MYOCARDIAL INFARCTION , PROBABLY OLD HIGH LATERAL INFARCT, AGE INDETERMINATE BORDERLINE T WAVE ABNORMALITY- INFERIOR LEADS BASELINE ARTIFACT- I, II, III, AVR, AVL, AVF ABNORMAL ECG Compared to ECG 11/01/2024 02:43:04 NO SIGNIFICANT CHANGE Electronically Signed On 03-17-2025 06:27:49 CDT by Lamonte Bnyum D.O.
--- OUTSIDE RECORDS SUMMARY | 2025-03-16 17:27 | XMS_ITS | Data Portability ---
Author Organization [facility] NICOLE P, [address] [facility] ([place]) Address [address] 4th [place] [address] Care Team Providers Care Character Artist Name Role Phone CLAUDE WILLS Primary Care Provider Assessment Encounter Date Assessment Date Assessment LastModified by Organization Details LastModified Time 11/16/2024 11/16/2024 We will do a CBC and an iron panel to evaluate her stool color changes, although I suspect this is antibiotic mediated. A1c is well today and continue the Rexulti and we will see her back in 3 months Not available 11/30/2024 08:50:12 12/01/2024 12/01/2024 I did discuss this with Dr. Wills. We were originally going to do a CBC, iron panel, CMP but the patient just had had CBC and iron panel done a week ago and really was a hard stick and did not want to get a CMP done. I was wanting to do that to check the liver enzymes because of her andreea colored stools. They are going to try her Kayopectate which they have used in the past, increasing fiber, specifically Benefiber and see if that keeps her from going as often but if she has persistent problems, would consider GI referral, although she has so many issues in the past. I do not think they really prefer to do that. They were willing to do a Hemoccult card to make sure she did not have any active blood in her stools. They declined the lab work today and is aware of the risk of doing that. If she has any worsening symptoms, they will contact us. They have a follow-up appointment with Dr. Wills in roughly a month. If any new problems or issues or persistent issues before that, will contact us. [email or web address] Not available 12/07/2024 15:01:00 12/22/2024 12/22/2024 I gave her the option as we discussed with Dr. Wills last time to take FiberCon but they never pursued this. The patient is very adamant she does not want to take it. I had an honest conversation with the patient that she has a shortened colon and I do not think she is ever going to quit swinging back and forth between diarrhea and constipation. The other alternative would be to discuss with GI possibly doing an ileostomy but she is having recurrent small bowel issues and they thought the ileostomy was not going to fix that problem but it might give her more control over the diarrhea which is what she is worried about at this time, but then she goes back and tells me that she is better in the last month than what she has been for a long time. Basically, I left the ball back in her court if she wants to check a CBC and an iron panel, I think it would be reasonable to do that and make sure she is not losing too much blood. She certainly does not have an appearance of anemia or complain of any fatigue in the office today. She would prefer not to do that until she comes back to see Dr. Wills in the fall but if she would change her mind, we would be happy to place that order. She shows a good understanding of all the above and intent to comply with that plan. 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 I recommended continuing dressing changes until the area heals by secondary intention. Nothing changes at this time. Will continue to monitor at this wound to make sure it heals completely. If the patient has any questions or concerns I will be happy to see the patient anytime. I will see the patient in 6 to 12 weeks for follow-up. [email or web address] Not available 01/06/2025 13:19:39 02/18/2025 02/18/2025 1. 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 Patient started leftover tablets yesterday (has taken 2 doses). Take as directed and complete the course unless instructed otherwise. - Continue current wound care: frequent absorbent dressing changes as needed; monitor for increasing redness, warmth, pain, fever, foul odor, or decreased output after starting antibiotics. - Discussed very high risk of mesh removal surgery and anesthesia; continue conservative management unless life t hreatening changes occur. - Notify clinic promptly if symptoms worsen or systemic symptoms develop. 2. Rectal bleeding, likely hemorrhoidal, improving - Order labs: CBC (to assess hemoglobin/hemat ocrit), iron panel, and complete metabolic panel including liver enzymes. - If hemoglobin remains stable, no further immediate work-up is needed. - Return/seek care for increased bleeding, dizziness, syncope, or signs of anemia. 3. Moderate dementia with behavioral disturbance and safety concerns (wandering/cristóbal ng 911/accusations) , caregiver strain - Strongly advised no driving. - Reviewed supervised living options: [facility] (dog may visit) remains on waiting list; [place] not a fit given policies; [facility] in [place] discussed as an Alzheimer's unit option if higher level of care becomes necessary. - Emphasized goals of safety, maintaining dignity, and minimizing harm; medications to date have not improved behaviors-focus on environment/supe rvision rather than medication changes today. - Caregiver to continue exploring placement options; clinic available for supportive documentation as needed. Follow-up: Monitor wound response to antibiotics and lab results; patient/caregive r to call with concerns. Schedule follow-up after labs or sooner if wound or bleeding worsens. Total time spent: 21 minutes (Tracked by [employer]) Not available 02/18/2025 13:02:24 Plan of Treatment Reminders Order Date Submit Date Provider Last Modified By Organization Details Last Modified Time Details Appointments Mariangel sorto Patient 20.EST 2024 11:00A M Dr. Claude Wills Not available Not available Not available Mariangel sorto Patient 20.EST 2024 11:20A M Dr. Claude Wills Not available Not available Not available Lab CMP, serum or plasma 2024 025 [facility], [address] [place] [address], [id number], 02/19/2025 17:27:10 CBC w/ auto diff 2024 025 [facility], [address] [place] [address], [id number], 02/19/2025 16:47:32 iron panel, serum or plasma 2024 025 [facility], [address] [place] [address], [id number], 02/19/2025 17:27:08 fecal occult blood, immunoa ssay, stool 2024 025 [facility], [address] [place] [address], [id number], 12/01/2024 15:52:48 hemoglo bin A1c + average glucose , QN, blood 2024 025 [facility], [address] [place] [address], [id number], 11/17/2024 17:41:27 CBC 2024 025 [facility], [address] [place] [address], [id number], 11/17/2024 15:13:51 iron panel, serum or plasma 2024 025 [facility], [address] [place] [address], [id number], 11/17/2024 17:02:55 Referral None recorde d. Procedures None recorde d. Surgeries None recorde d. Imaging None recorde d. Medication Orders levoflo xacin 500 mg tablet 2024 025 [id number], [address] [place], [id number], 02/18/2025 12:41:26 Patient TargetsNo targets recorded. Patient InstructionsNo instructions recorded. Reason for Referral None Reported. Results Created Date Observation Date Name Description Value Unit Range Abnormal Flag Note LastModifiedBy Organization Detail LastModifiedTime 11/04/19 25 11/11/2024 C ANAER OBIC anaerobic culture (new) Print Date/ Time: 2024 12:12 CDT Patie nt: SARAHE R, MELISSA Metcalf GISELA RINE Micro biolo gy - Wound s and Tissu es Legen d: c=Cor recte d, F=Res ult Comme nt, S=Nya cepti ble, I=Int ermed iate, R=Res istan t, N/A=N ot Appli cable PROCE DURE: Anaer obic Cultu re [] ACCES VICKY: 25-14 0-004 742 SOURC E: Tissu e BODY SITE: COLLE CTED DATE/ TIME: 2024 10:37 CDT RECEI PARKER DATE/ TIME: 2024 15:57 CDT START DATE/ TIME: 2024 15:58 CDT FREE TEXT SOURC E: ABDOM INAL TISSU E FI NAL REPOR TS Final Repor t [] Verif ied Date/ Time: 2024 12:12 CDT No anaer obes isola zeferino after 7 days incub ation . [place] ELIMI NARY REPOR TS Preli minar y Repor t [] Verif ied Date/ Time: 2024 15:00 CDT No anaer obes after 2 days incub ation ; if cultu re remai ns negat antwan, final repor t after 7 days. Preli minar y Repor t [] Verif ied Date/ Time: 2024 08:54 CDT Cultu re in progr ess Not Available [place] - [facility] [address] [facility], [place], [address], 11/11/2024 13:12:21 11/04/19 25 11/07/2024 C TISSU E tissue culture with gram stain (new) abnormal Print Date/ Time: 2024 15:20 CDT Patie nt: TUCKE R, TERES A GISELA RINE Micro biolo gy - Wound s and Tissu es Legen d: c=Cor recte d, F=Res ult Comme nt, S=Nya cepti ble, I=Int ermed iate, R=Res istan t, N/A=N ot Appli cable PROCE DURE: Tissu e Cultu re with Gram ACCES VICKY: 14 0-004 742 Stain [] SOURC E: Tissu e BODY SITE: COLLE CTED DATE/ TIME: 2024 10:37 CDT RECEI PARKER DATE/ TIME: 2024 15:57 CDT START DATE/ TIME: 2024 15:57 CDT FREE TEXT SOURC E: ABDOM INAL TISSU E FI NAL REPOR TS Final Repor t [] Verif ied Date/ Time: 2024 15:20 CDT Rare Pseud omona s aerug inosa and Few Strep tococ cus inter mediu s Organ ism did not grow for sensi tivit y. See separ ate repor t for anaer obe cultu re assoc iated with this speci men. [place] ELIMI NARY REPOR TS Preli minar y Repor t [] Verif ied Date/ Time: 2024 14:13 CDT Rare Pseud omona s aerug inosa and Few Strep tococ cus virid ans group Cultu re reinc ubate d See separ ate repor t for anaer obe cultu re assoc iated with this speci men. Preli minar y Repor t [] Verif ied Date/ Time: 2024 11:00 CDT Rare Pseud omona s aerug inosa Susce ptibi lity to follo w Cultu re reinc ubate d See separ ate repor t for anaer obe cultu re assoc iated with this speci men. Preli minar y Repor t [] Verif ied Date/ Time: 2024 11:23 CDT No growt h after 12-24 hours incub ation See separ ate repor t for anaer obe cultu re assoc iated with this speci men. ST AINS/ PREPA RATIO NS GS [] Verif ied Date/ Time: 2024 18:34 CDT No neutr ophil s No organ isms seen UMANA SCEPT IBILI TY RESUL TS Pseud omona s aerug inosa Antib iotic MINT Cefep zainab Susce ptibl e Cefta zidim e Susce ptibl e Levof loxac in Susce ptibl e Merop enem Susce ptibl e Piper acill in-ta zobac guerrero Susce ptibl e Tobra mycin Susce ptibl e Not Available [place] - [facility] [address], [place], [address], 11/07/2024 16:20:05 11/04/19 25 11/03/2024 cultu re, anaer obic anaerobic culture * Speci men colle cted and sent out for testi ng by [facility]. Resul ts will flow into the elect ronic recor d and the provi marquita will recei ve a 'Revi ew Docum ent' task at that time. Not Available [facility] [address], [place], [address], 11/03/2024 11:39:03 11/04/19 25 11/06/2024 C ANAER OBIC anaerobic culture (new) Print Date/ Time: 2024 15:00 CDT Patie nt: ANDREW RMELISSA GISELA RINE Micro biolo gy - Wound s and Tissu es Legen d: c=Cor recte d, F=Res ult Comme nt, S=Nya cepti ble, I=Int ermed iate, R=Res istan t, N/A=N ot Appli cable PROCE DURE: Anaer obic Cultu re [] ACCES VICKY: 25-14 0-004 742 SOURC E: Tissu e BODY SITE: COLLE CTED DATE/ TIME: 2024 10:37 CDT RECEI PARKER DATE/ TIME: 2024 15:57 CDT START DATE/ TIME: 2024 15:58 CDT FREE TEXT SOURC E: ABDOM INAL TISSU E [place] ELIMI NARY REPOR TS Preli minar y Repor t [] Verif ied Date/ Time: 2024 15:00 CDT No anaer obes after 2 days incub ation ; if cultu re remai ns negat antwan, final repor t after 7 days. Preli minar y Repor t [] Verif ied Date/ Time: 2024 08:54 CDT Cultu re in progr ess Not Available [place] [facility] - [facility] [address] [facility], [place], [address], 11/06/2024 16:00:52 11/04/19 25 11/06/2024 C TISSU E tissue culture with gram stain (new) abnormal Print Date/ Time: 2024 14:13 CDT Patie nt: TUCKE R, MELISSA Metcalf GISELA RINE Micro biolo gy - Wound s and Tissu es Legen d: c=Cor recte d, F=Res ult Comme nt, S=Nya cepti ble, I=Int ermed iate, R=Res istan t, N/A=N ot Appli cable PROCE DURE: Tissu e Cultu re with Gram ACCES VICKY: 25-14 0-004 742 Stain [] SOURC E: Tissu e BODY SITE: COLLE CTED DATE/ TIME: 2024 10:37 CDT RECEI PARKER DATE/ TIME: 2024 15:57 CDT START DATE/ TIME: 2024 15:57 CDT FREE TEXT SOURC E: ABDOM INAL TISSU E [place] ELIMI NARY REPOR TS Preli minar y Repor t [] Verif ied Date/ Time: 2024 14:13 CDT Rare Pseud omona s aerug inosa and Few Strep tococ cus virid ans group Cultu re reinc ubate d See separ ate repor t for anaer obe cultu re assoc iated with this speci men. Preli minar y Repor t [] Verif ied Date/ Time: 2024 11:00 CDT Rare Pseud omona s aerug inosa Susce ptibi lity to follo w Cultu re reinc ubate d See separ ate repor t for anaer obe cultu re assoc iated with this speci men. Preli minar y Repor t [] Verif ied Date/ Time: 2024 11:23 CDT No growt h after 12-24 hours incub ation See separ ate repor t for anaer obe cultu re assoc iated with this speci men. ST AINS/ PREPA RATIO NS GS [] Verif ied Date/ Time: 2024 18:34 CDT No neutr ophil s No organ isms seen UMANA SCEPT IBILI TY RESUL TS Pseud omona s aerug inosa Antib iotic MINT Cefep zainab Susce ptibl e Cefta zidim e Susce ptibl e Levof loxac in Susce ptibl e Merop enem Susce ptibl e Piper acill in-ta zobac guerrero Susce ptibl e Tobra mycin Susce ptibl e Not Available [place] [facility] - [facility] [address] [facility], [place], [address], 11/06/2024 15:13:25 11/04/19 25 11/06/2024 C TISSU E tissue culture with gram stain (new) abnormal Print Date/ Time: 2024 11:20 CDT Patie nt: ANDREW RMELISSA GISELA RINE Micro biolo gy - Wound s and Tissu es Legen d: c=Cor recte d, F=Res ult Comme nt, S=Nya cepti ble, I=Int ermed iate, R=Res istan t, N/A=N ot Appli cable PROCE DURE: Tissu e Cultu re with Gram ACCES VICKY: 0-004 742 Stain [] SOURC E: Tissu e BODY SITE: COLLE CTED DATE/ TIME: 2024 10:37 CDT RECEI PARKER DATE/ TIME: 2024 15:57 CDT START DATE/ TIME: 2024 15:57 CDT FREE TEXT SOURC E: ABDOM INAL TISSU E [place] ELIMI NARY REPOR TS Preli minar y Repor t [] Verif ied Date/ Time: 2024 11:00 CDT Rare Pseud omona s aerug inosa Susce ptibi lity to follo w Cultu re reinc ubate d See separ ate repor t for anaer obe cultu re assoc iated with this speci men. Preli minar y Repor t [] Verif ied Date/ Time: 2024 11:23 CDT No growt h after 12-24 hours incub ation See separ ate repor t for anaer obe cultu re assoc iated with this speci men. ST AINS/ PREPA RATIO NS GS [] Verif ied Date/ Time: 2024 18:34 CDT No neutr ophil s No organ isms seen UMANA SCEPT IBILI TY RESUL TS Pseud omona s aerug inosa Antib iotic MINT Cefep zainab Susce ptibl e Cefta zidim e Susce ptibl e Levof loxac in Susce ptibl e Merop enem Susce ptibl e Piper acill in-ta zobac guerrero Susce ptibl e Tobra mycin Susce ptibl e Not Available [place] [facility] - [facility] [address] [facility], [place], [address], 11/06/2024 12:20:06 11/04/19 25 11/05/2024 C TISSU E tissue culture with gram stain (new) abnormal Print Date/ Time: 2024 11:00 CDT Patie nt: ANDREW R, MELISSA A GISELA RINE Micro biolo gy - Wound s and Tissu es Legen d: c=Cor recte d, F=Res ult Comme nt, S=Nya cepti ble, I=Int ermed iate, R=Res istan t, N/A=N ot Appli cable PROCE DURE: Tissu e Cultu re with Gram ACCES VICKY: 25-14 0 742 Stain [] SOURC E: Tissu e BODY SITE: COLLE CTED DATE/ TIME: 2024 10:37 CDT RECEI PARKER DATE/ TIME: 2024 15:57 CDT START DATE/ TIME: 2024 15:57 CDT FREE TEXT SOURC E: ABDOM INAL TISSU E [place] ELIMI NARY REPOR TS Preli minar y Repor t [] Verif ied Date/ Time: 2024 11:00 CDT Rare Pseud omona s aerug inosa Susce ptibi lity to follo w Cultu re reinc ubate d See separ ate repor t for anaer obe cultu re assoc iated with this speci men. Preli minar y Repor t [] Verif ied Date/ Time: 2024 11:23 CDT No growt h after 12-24 hours incub ation See separ ate repor t for anaer obe cultu re assoc iated with this speci men. ST AINS/ PREPA RATIO NS GS [] Verif ied Date/ Time: 2024 18:34 CDT No neutr ophil s No organ isms seen Not Available [place] [facility] - [facility] [address] [facility], [place], [address], 11/05/2024 12:00:38 11/04/19 25 11/04/2024 C TISSU E tissue culture with gram stain (new) Print Date/ Time: 2024 11:23 CDT Patie nt: TUCKE R, MELISSA A GISELA RINE Micro biolo gy - Wound s and Tissu es Legen d: c=Cor recte d, F=Res ult Comme nt, S=Nya cepti ble, I=Int ermed iate, R=Res istan t, N/A=N ot Appli cable PROCE DURE: Tissu e Cultu re with Gram ACCES VICKY: 0-004 742 Stain [] SOURC E: Tissu e BODY SITE: COLLE CTED DATE/ TIME: 2024 10:37 CDT RECEI PARKER DATE/ TIME: 2024 15:57 CDT START DATE/ TIME: 2024 15:57 CDT FREE TEXT SOURC E: ABDOM INAL TISSU E [place] ELIMI NARY REPOR TS Preli minar y Repor t [] Verif ied Date/ Time: 2024 11:23 CDT No growt h after 12-24 hours incub ation See separ ate repor t for anaer obe cultu re assoc iated with this speci men. ST AINS/ PREPA RATIO NS GS [] Verif ied Date/ Time: 2024 18:34 CDT No neutr ophil s No organ isms seen Not Available [place] [facility] - [facility] [address] [place] [address], [address], 11/04/2024 12:23:05 11/04/19 25 11/04/2024 C ANAER OBIC anaerobic culture (new) Print Date/ Time: 2024 08:54 CDT Patie nt: TUCKE R, MELISSA A GISELA RINE Micro biolo gy - Wound s and Tissu es Legen d: c=Cor recte d, F=Res ult Comme nt, S=Nya cepti ble, I=Int ermed iate, R=Res istan t, N/A=N ot Appli cable PROCE DURE: Anaer obic Cultu re [] ACCES VICKY: 25-14 0-004 742 SOURC E: Tissu e BODY SITE: COLLE CTED DATE/ TIME: 2024 10:37 CDT RECEI PARKER DATE/ TIME: 2024 15:57 CDT START DATE/ TIME: 2024 15:58 CDT FREE TEXT SOURC E: ABDOM INAL TISSU E [place] ELIMI NARY REPOR TS Preli minar y Repor t [] Verif ied Date/ Time: 2024 08:54 CDT Cultu re in progr ess Not Available [place] [facility] - [facility] [address] [place] [address], [id number], 11/04/2024 09:54:38 11/04/19 25 11/03/2024 C TISSU E tissue culture with gram stain (new) Print Date/ Time: 2024 18:34 CDT Patie nt: ANDREW R, MELISSA A GISELA RINE Micro biolo gy - Wound s and Tissu es Legen d: c=Cor recte d, F=Res ult Comme nt, S=Nya cepti ble, I=Int ermed iate, R=Res istan t, N/A=N ot Appli cable PROCE DURE: Tissu e Cultu re with Gram ACCES VICKY: 0-004 742 Stain [] SOURC E: Tissu e BODY SITE: COLLE CTED DATE/ TIME: 2024 10:37 CDT RECEI PARKER DATE/ TIME: 2024 15:57 CDT START DATE/ TIME: 2024 15:57 CDT FREE TEXT SOURC E: ABDOM INAL TISSU E ST AINS/ PREPA RATIO NS GS [] Verif ied Date/ Time: 2024 18:34 CDT No neutr ophil s No organ isms seen Not Available [place] [facility] - [facility] [address] [place] [address], [address], 11/03/2024 19:34:31 11/17/19 25 11/17/2024 CBC CBC Not Available [facility] [address] [place] [address], [id number], 11/17/2024 15:13:51 11/17/19 25 11/17/2024 CBC WBC 6.7 K/uL 3.8-11 .2 Not Available [facility] [address] [place] [address], [id number], 11/17/2024 15:13:51 11/17/19 25 11/17/2024 CBC RBC 4.08 M/uL 3.92-5 .10 Not Available [facility] [address] [place] [address], [address], 11/17/2024 15:13:51 11/17/1911/17/2024 CBC HGB 12.2 g/dL 11.8-1 5.3 Not Available [facility] [address] [place] [address], [id number], 11/17/2024 15:13:51 11/17/1911/17/2024 CBC HCT 37.0 % 36.5-4 4.8 Not Available [facility] [address] [place] [address], [id number], 11/17/2024 15:13:51 11/17/1911/17/2024 CBC MCV 90.7 fL 80.0-9 9.0 Not Available [facility] [address] [place] [address], [address], 11/17/2024 15:13:51 11/17/1911/17/2024 CBC MCH 29.9 pg 25.5-3 3.6 Not Available [facility] [address] [place] [address], [id number], 11/17/2024 15:13:51 11/17/1911/17/2024 CBC MCHC 33.0 g/dL 32.0-3 6.0 Not Available [facility] [address] [place] [address], [id number], 11/17/2024 15:13:51 11/17/1911/17/2024 CBC RDW-SD 45.1 fL 35.1 - 46.3 Not Available [facility] [address] [place] [address], [id number], 11/17/2024 15:13:51 11/17/1911/17/2024 CBC plt 183 K/uL 130-40 0 Not Available [facility] [address] [place] [address], [id number], 11/17/2024 15:13:51 11/17/1909 1211/17/2024 CBC MPV 12.7 fL 9.3-12 .8 Not Available [facility] [address] [place] [address], [id number], 11/17/2024 15:13:51 11/17/19 25 11/17/2024 iron panel , serum or plasm a iron panel Not Available [facility] [address] [place] [address], [id number], 11/17/2024 17:15:03 11/17/19 25 11/17/2024 iron panel , serum or plasm a iron 28 ug/dL 50-212 low Sampl e sligh tly hemol yzed, resul ts may be false ly decre ased. Not Available [facility] [address] [place] [address], [address], 11/17/2024 17:15:03 11/17/19 25 11/17/2024 iron panel , serum or plasm a % saturation 9 % 20-55 low Not Available [facility] [address] [place] [address], 713[address], 11/17/2024 17:15:03 11/17/19 25 11/17/2024 iron panel , serum or plasm a ferritin 76 NG/mL 12-150 Not Available [facility] [address] [place] [address], [id number], 11/17/2024 17:15:03 11/17/19 25 11/17/2024 iron panel , serum or plasm a TIBC. 328 ug/dL 205 - 512 Not Available [facility] [address] [place] [address], [id number], 11/17/2024 17:15:03 11/17/19 25 11/17/2024 hemog lobin A1c + avera ge gluco se, QN, blood hemoglobin A1C Not Available [facility] [address] [place] [address], 164[address], 11/17/2024 17:41:27 11/17/19 25 11/17/2024 hemog lobin A1c + avera ge gluco se, QN, blood HGB A1C 7.3 %_A1C 4.3 - 5.6 high Not Available [facility] [address] [place] [address], [address], 11/17/2024 17:41:27 11/17/19 25 11/17/2024 hemog lobin A1c + avera ge gluco se, QN, blood estimated average glucose 163 mg/dL Not Available [facility] [address] [place] [address], [id number], 11/17/2024 17:41:27 12/02/19 25 12/01/2024 fecal occul t blood , immun oassa y, stool hemoccult kit * Occul t kit amee d out to patie nt. Provi marquita will recei ve 'Veri fy Resul ts' task in elect kristi recor d after colle cted kit is recei parker in lab and resul zeferino. Not Available [facility] [address] [place] [address], [id number], 12/01/2024 15:52:48 12/17/19 25 12/16/2024 hemog lobin , gastr ointe stanford l, stool fecal HGB; medicare scrn POSITI VE negati ve abnormal Not Available [facility] [address] [place] [address], [id number], 12/16/2024 18:05:13 02/19/2002/19/2025 CBC w/ auto diff CBC with differential Not Available [facility] [address] [place] [address], [id number], 02/19/2025 16:47:32 02/19/20 25 02/19/2025 CBC w/ auto diff WBC 7.0 K/uL 3.8-11 .2 Not Available [facility] [address] [place] [address], [id number], 02/19/2025 16:47:32 02/19/2002/19/2025 CBC w/ auto diff RBC 4.30 M/uL 3.92-5 .10 Not Available [facility] [address] [place] [address], [id number], 02/19/2025 16:47:32 02/19/2002/19/2025 CBC w/ auto diff HGB 12.5 g/dL 11.8-1 5.3 Not Available [facility] [address] [place] [address], [address], 02/19/2025 16:47:32 02/19/2002/19/2025 CBC w/ auto diff HCT 38.4 % 36.5-4 4.8 Not Available [facility] [address] [place] [address], [address], 02/19/2025 16:47:32 02/19/2002/19/2025 CBC w/ auto diff MCV 89.3 fL 80.0-9 9.0 Not Available [facility] [address] [place] [address], [id number], 02/19/2025 16:47:32 02/19/2002/19/2025 CBC w/ auto diff MCH 29.1 pg 25.5-3 3.6 Not Available [facility] [address] [place] [address], [address], 02/19/2025 16:47:32 02/19/2002/19/2025 CBC w/ auto diff MCHC 32.6 g/dL 32.0-3 6.0 Not Available [facility] [address] [place] [address], [address], 02/19/2025 16:47:32 02/19/2002/19/2025 CBC w/ auto diff RDW-SD 45.8 fL 35.1 - 46.3 Not Available [facility] - [facility] Laboratory [address] [place] [address], [id number], 02/19/2025 16:47:32 02/19/2002/19/2025 CBC w/ auto diff plt 170 K/uL 130-40 0 Not Available [facility] [address] [place] [address], 10364, 02/19/2025 16:47:32 02/19/2002/19/2025 CBC w/ auto diff MPV 12.2 fL 9.3-12 .8 Not Available [facility] [address] [place] [address], [id number], 02/19/2025 16:47:32 02/19/2002/19/2025 CBC w/ auto diff paul% 67.5 % not estab Not Available [facility] [address] [place] [address], 09020, 02/19/2025 16:47:32 02/19/2002/19/2025 CBC w/ auto diff lym% 21.0 % not estab Not Available [facility] [address] [place] [address], 08671, 02/19/2025 16:47:32 02/19/2002/19/2025 CBC w/ auto diff mono% 6.6 % not estab Not Available [facility] [address] [place] [address], 11435, 02/19/2025 16:47:32 02/19/2002/19/2025 CBC w/ auto diff eos% 3.7 % not estab Not Available [facility] [address] [place] [address], 34352, 02/19/2025 16:47:32 02/19/2002/19/2025 CBC w/ auto diff baso% 0.9 % not estab Not Available [facility] [address] [place] [address], 44110, 02/19/2025 16:47:32 02/19/2002/19/2025 CBC w/ auto diff abs paul 4.7 K/uL 1.8-7. 5 Not Available [facility] [address] [place] [address], 66922, 02/19/2025 16:47:32 02/19/2002/19/2025 CBC w/ auto diff abs lym 1.5 K/uL 1.1-3. 3 Not Available [facility] [address] [place] [address], 34945, 02/19/2025 16:47:32 02/19/2002/19/2025 CBC w/ auto diff abs mono 0.5 K/uL 0.1-1. 0 Not Available [facility] [address] [place] [address], 70678, 02/19/2025 16:47:32 02/19/2002/19/2025 CBC w/ auto diff abs eos 0.3 K/uL 0.0-0. 7 Not Available [facility] [address] [place] [address], 87115, 02/19/2025 16:47:32 02/19/2002/19/2025 CBC w/ auto diff abs baso 0.1 K/uL 0.0-0. 2 Not Available [facility] [address] [place] [address], 97968, 02/19/2025 16:47:32 02/19/2002/19/2025 CBC w/ auto diff imm. gran % 0.3 % 0-5 Not Available [facility] [address] [place] [address], 88711, 02/19/2025 16:47:32 02/19/2002/19/2025 CBC w/ auto diff NRBC % 0.0 % 0.0-0. 2 Not Available [facility] [address] [place] [address], 81140, 02/19/2025 16:47:32 02/19/2002/19/2025 iron panel , serum or plasm a iron panel Not Available [facility] [address] [place] [address], 58175, 02/19/2025 17:29:19 02/19/2002/19/2025 iron panel , serum or plasm a iron 41 ug/dL 50-212 low Sampl e sligh tly hemol yzed, resul ts may be false ly decre ased. Not Available [facility] [address] [place] [address], 10478, 02/19/2025 17:29:19 02/19/2002/19/2025 iron panel , serum or plasm a % saturation 13 % 20-55 low Not Available [facility] [address] [place] [address], 41896, 02/19/2025 17:29:19 02/19/2002/19/2025 iron panel , serum or plasm a ferritin 63 NG/mL 12-150 Not Available [facility] [address] [place] [address], 02338, 02/19/2025 17:29:19 02/19/2002/19/2025 iron panel , serum or plasm a TIBC. 318 ug/dL 205 - 512 Not Available [facility] [address] [place] [address], 57537, 02/19/2025 17:29:19 02/19/2002/19/2025 CMP, serum or plasm a comp. met. panel Not Available [facility] [address] [place] [address], 07517, 02/19/2025 17:27:10 02/19/2002/19/2025 CMP, serum or plasm a sodium 138 mmol/ L 136-14 6 Not Available [facility] [address] [place] [address], 41477, 02/19/2025 17:27:10 02/19/2002/19/2025 CMP, serum or plasm a potassium 4.5 mmol/ L 3.5-5. 1 Not Available [facility] [address] [place] [address], 00484, 02/19/2025 17:27:10 02/19/2002/19/2025 CMP, serum or plasm a chloride 100 mmol/ L 98-110 Not Available [facility] [address] [place] [address], 64053, 02/19/2025 17:27:10 02/19/2002/19/2025 CMP, serum or plasm a CO2 26 mEq/L 20-32 Not Available [facility] [address] [place] [address], 35439, 02/19/2025 17:27:10 02/19/2002/19/2025 CMP, serum or plasm a anion gap 17 mmol/ L 10-22 Not Available [facility] [address] [place] [address], 43721, 02/19/2025 17:27:10 02/19/2002/19/2025 CMP, serum or plasm a glucose 222 mg/dL 70-100 high Not Available [facility] [address] [place] [address], 20504, 02/19/2025 17:27:10 02/19/2002/19/2025 CMP, serum or plasm a calcium 9.6 mg/dL 8.4-10 .4 Not Available [facility] [address] [place] [address], 14926, 02/19/2025 17:27:10 02/19/2002/19/2025 CMP, serum or plasm a total protein 7.2 g/dL 6.4-8. 3 Not Available [facility] [address] [place] [address], 38976, 02/19/2025 17:27:10 02/19/2002/19/2025 CMP, serum or plasm a albumin 4.5 g/dL 3.5-5. 3 Not Available [facility] [address] [place] [address], 45767, 02/19/2025 17:27:10 02/19/2002/19/2025 CMP, serum or plasm a ALP 80 U/L 44 - 127 Not Available [facility] [address] [place] [address], 19897, 02/19/2025 17:27:10 02/19/2002/19/2025 CMP, serum or plasm a AST (SGOT) 27 U/L 10-40 Not Available [facility] [address] [place] [address], 52258, 02/19/2025 17:27:10 02/19/2002/19/2025 CMP, serum or plasm a total bilirubin 0.3 mg/dL 0.2-1. 2 Not Available [facility] [address] [place] [address], 54496, 02/19/2025 17:27:10 02/19/2002/19/2025 CMP, serum or plasm a ALT (SGPT) 30 U/L 8-35 Not Available [facility] [address] [place] [address], 92228, 02/19/2025 17:27:10 02/19/2002/19/2025 CMP, serum or plasm a BUN 14 mg/dL 7-21 Not Available [facility] [address] [place] [address], 09031, 02/19/2025 17:27:10 02/19/2002/19/2025 CMP, serum or plasm a creatinine 1.1 mg/dL 0.7-1. 3 Not Available [facility] [address] [place] [address], 48505, 02/19/2025 17:27:10 02/19/20 25 02/19/2025 CMP, serum or plasm a CKD-epi GFR 50 low eGFR was calcu lated using the 2020 CKD-E PI equat ion. (Php [employer] Developer nicole Pickett y Pedro se has an eGFR less than 60 mL/mi n/1.7 3mm for a perio d of three month s or more. ) This calcu latio n has not been valid ated for patie nt ages <18 or >90 years old. Not Available [facility] - [facility] [address] [place] [address], 15073, 02/19/2025 17:27:10 11/04/1911/01/2024 CT, abdom en + pelvi s, w/ contr ast No observ ation record ed. [email or web address] Not Available 2024 17:27:08 12/20/19 25 07/13/2019 imagi ng/di agnos tic resul t No observ ation record ed. [email or web address] Not Available 0 12/19/2024 07:45:02 12/20/19 25 08/13/2017 imagi ng/di agnos tic resul t No observ ation record ed. [email or web address] Not Available 0 12/19/2024 07:45:04 12/20/19 25 10/30/2017 imagi ng/di agnos tic resul t No observ ation record ed. [email or web address] Not Available 0 12/19/2024 07:45:12 12/20/19 25 01/05/2019 imagi ng/di agnos tic resul t No observ ation record ed. [email or web address] Not Available 0 12/19/2024 07:45:17 12/20/19 25 01/10/2018 imagi ng/di agnos tic resul t No observ ation record ed. [email or web address] Not Available 0 12/19/2024 07:45:18 12/20/19 25 01/20/2020 imagi ng/di agnos tic resul t No observ ation record ed. [email or web address] Not Available 0 12/19/2024 07:45:20 12/20/1904/30/2019 imagi ng/di agnos tic resul t No observ ation record ed. [email or web address] Not Available 0 12/19/2024 07:45:23 12/20/19 25 05/06/2019 imagi ng/di agnos tic resul t No observ ation record ed. [email or web address] Not Available 0 12/19/2024 07:45:26 12/20/19 25 05/06/2019 imagi ng/di agnos tic resul t No observ ation record ed. [email or web address] Not Available 0 12/19/2024 07:45:27 12/20/1905/06/2019 imagi ng/di agnos tic resul t No observ ation record ed. [email or web address] Not Available 0 12/19/2024 07:45:27 Result Notes None recorded. Problems Name Problem SNOMED Code Status Onset Date Resolution Date Notes Provider Name and Address Organization Details Recorded Time Chronic obstructiv e pulmonary disease 61763078 Active Not Available [facility] 4 14:54:00 Chronic kidney disease stage 3A 071341294 Active Not Available [facility] 4 14:54:12 Type 2 diabetes mellitus 62402868 Active Not Available [facility] 4 14:54:16 Chronic kidney disease stage 3 884764242 Active Not Available [facility] 5 12:48:31 Moderate dementia 7454866201200 00 Active 2023 Claude Wills MD [address] [place] [address], [address] , [facility] 4 14:55:09 Adult health examinatio n Active 2023 Claude Wills MD [address] [place] [address], [address] , [facility] 4 14:57:20 History of malignant neoplasm of colon 740753190 Active 2023 Claude Wills MD [address] [place] [address], [address] , [facility] 4 14:58:19 History of malignant neoplasm of ovary 236479976 Active 2023 Claude Wills MD [address] [place] [address], [address] , [facility] 4 14:58:33 Disorder of kidney due to diabetes mellitus 307734522 Active 2023 Yamilex Miquel solorzano, [facility] 4 01:30:51 Primary gonarthros is, bilateral 566617668 Active 2023 Lazara Robison PA-C [address] [facility], [place], [address] , [facility] 4 14:21:54 Allergic rhinitis 84776510 Active 2023 Claued Wills MD [address] [place] [address], [address] , [facility] 4 15:45:07 Chronic thoracic back pain 9041796978450 03 Active 2023 Claude Wills MD [address] [place] [address], [address] , [facility] 4 15:45:58 Right lower quadrant pain 533545982 Active 2023 Claude Wills MD [address] [place] [address], [address] , [facility] 4 16:14:26 Local infection of wound 46698996 Active 2024 Erika Harkinsjovanny solorzano, [facility] 5 17:41:35 Generalize d anxiety disorder 91385816 Active 2024 Claude Wills MD [address] [facility], [facility] [place], [address] , [facility] 5 14:08:06 Rectal hemorrhage 82297463 Active 2024 Claude Wills MD [address] [place] [address], [address] , [facility] 5 11:14:30 Open wound of abdomen 130193487 Active 2024 Claude Wills MD [address] [place] [address], [address] , [facility] 5 11:14:54 Localized infection of subcutaneo us tissue 177693277 Active 2024 Negar Johnson [facility] 5 11:30:12 Pain in coccyx 03865709 Active 2024 Erika Harkins [facility] 5 11:28:10 Melena 2685785 Active 2024 Claude Wills MD [address] [place] [address], [address] , [facility] 5 12:47:43 Stool finding 236394361 Active 2024 Zohreh Hampton PA-C [address] [place] [address], [address] , [facility] 5 15:44:43 Increased frequency of defecation 17589615 Active 2024 Zohreh Hampton PA-C [address] [place] [address], [address] , [facility] 5 18:50:55 Hematochez ia 682359867 Active 2024 Zohreh Hampton PA-C [address] [place] [address], [address] , [facility] 5 18:26:02 Altered bowel function 51792522 Active 2024 Zohreh Hampton PA-C [address] [place] [address], [address] , [facility] 5 18:26:27 Problem Notes None recorded. Procedures Surgical History Date Name Laterality Status Provider Name and Address Organization Details Recorded Time 025 removal of mesh from wound completed Lina Prose [facility] 11/18/2024 12:33:12 024 SC Viscosupplementation II completed Zuri Rednour [facility] 04/21/2024 10:06:06 Imaging Results None recorded. Procedure Notes None recorded. Medical Equipment None Reported. Allergies Allergen ID Allergen Name Allergen Category Reaction Reaction Severity Criticality Documentation Date Start Date Code Code System Note Provider Name and Address Organization Details Recorded Time 8518667 tetanus and diphtheri a toxoids, adsorbed, adult medicatio n anaphylax is Not available Not available 07/17/20232008 React ion: Anaph ylaxi s; Not Available [facility] 4 03:56:42 5639392 codeine medicatio n anaphylax is Not available Not available 07/17/20232007 2670 RxNorm React ion: Anaph ylaxi s; Not Available [facility] 4 03:56:43 0640268 Product containin g penicilli n (product) medicatio n anaphylax is Not available Not available 07/17/20232007 20759 8001 SNOMED React ion: Anaph ylaxi s; Not Available [facility] 4 03:56:43 955363 Cholester ol Managemen t medicatio n Not available Not available Not available 07/15/20232008 12074 96 RxNorm React ion: Other : liver issue s/gisele thly sick; Not Available [facility] 4 21:47:44 385694 wheat preparati on food,medi cation Not available Not available Not available 07/15/20232007 95581 52 RxNorm React ion: Other : exace rbate s diver ticul itis; Comme nt: Wheat ; Not Available [facility] 4 21:47:44 913126 Substance with sulfonami de structure and antibacte rial mechanism of action (substanc e) medicatio n Not available Not available Not available 07/15/20232015 84251 8003 SNOMED Not Available [facility] 4 21:47:46 Medications Name Sig Start Date [...] TAKE 1 CAPSULE BY MOUTH EVERY DAY 2024 active Not Available Not Available Not Avai lable glimepiride 1 mg tablet TAKE 1 TABLET BY MOUTH EVERY DAY active Not Available Not Available No t Available hydrocortis one 2.5 % topical cream with perineal applicator 11/16 completed Not Available Not Available Not Available lorazepam 0.5 mg tablet TAKE 1 TABLET BY MOUTH TWICE DAILY NEEDED 11/16 completed Not Available Not Available Not Available hhgreggToKaymbu Ultra Test strips USE TO TEST 3 TIMES DAILY 2023 active Not Available Not Available Not Avai lable montelukast 10 mg tablet TAKE 1 TABLET BY MOUTH EVERY DAY 2024 active Not Available Not Available Not Avai lable levofloxaci n 500 mg tablet TAKE 1 TABLET BY MOUTH DAILY FOR 21 DAYS active Not Available Not Available No t Available ketoconazol e 2 % topical cream APPLY THIN LAYER TOPICALLY TO THE AFFECTED AREA TWICE DAILY NEEDED active Not Available Not Available No t Available metformin ER 500 mg tablet,exte nded release 24 hr TAKE 1 TABLET BY MOUTH DAILY 02/10 completed Not Available Not Available Not Available amoxicillin 875 mg-potassiu m clavulanate 125 mg tablet TAKE 1 TABLET BY MOUTH TWICE DAILY 11/16 completed Not Available Not Available Not Available memantine 10 mg tablet TAKE 1 TABLET BY MOUTH TWICE DAILY 05/11 completed Not Available Not Available Not Available memantine 5 mg tablet TAKE 1 TABLET BY MOUTH TWICE DAILY 02/10 completed Not Available Not Available Not Available Rexulti 1 mg tablet TAKE 1/2 TABLET BY MOUTH DAILY X 7 DAYS THEN 1 TABLET DAILY X 7 DAYS THEN 2 TABLETS DAILY THEREAFTE R 12/01 completed Not Available Not Available Not Available OneTouch Ultra2 Meter USE DIRECTED TO TEST SUGARS active Not Available Not Available No t Available OneTouch Delica Plus Lancet 33 gauge USE TO TEST FOUR TIMES DAILY active Not Available Not Available No t Available Vitals Date Recorded Body height Body mass index (BMI) Body weight Respiratory rate Oxygen saturation Oxygen saturation in Arterial blood by Pulse oximetry Heart rate Systolic And Diastolic Provider Name and Address Organization Details Last Updated DateTime 5 144.78 cm 31.6 kg/m2 79526.4 9 g 18 /min 97 % 97 % 77 /min 118/66 mm[Hg] Hilda Josuesimon [facility] 5 12:22:01 Date Recorded Body height Body mass index (BMI) Body weight Respiratory rate Body temperature Heart rate Oxygen saturation Oxygen saturation in Arterial blood by Pulse oximetry Systolic And Diastolic Provider Name and Address Organization Details Last Updated DateTime 5 144.78 cm 30.5 kg/m2 94233.5 2 g 18 /min 97.5 [degF] 81 /min 95 % 95 % 132/60 mm[Hg] [facility] 5 14:53:04 Date Recorded Body height Body mass index (BMI) Body weight Respiratory rate Body temperature Heart rate Oxygen saturation Oxygen saturation in Arterial blood by Pulse oximetry Systolic And Diastolic Provider Name and Address Organization Details Last Updated DateTime 5 144.78 cm 31.6 kg/m2 97555.4 9 g 18 /min 97.3 [degF] 88 /min 95 % 95 % 130/60 mm[Hg] [facility] 5 15:51:06 Date Recorded Body height Body mass index (BMI) Body weight Systolic And Diastolic Provider Name and Address Organization Details Last Updated DateTime 01/06/2025 144.78 cm 32 kg/m2 28198.67 g 136/78 mm[Hg] Lina Rush [facility] 01/06/2025 12:35:21 Date Recorded Body height Body mass index (BMI) Body weight Body temperature Respiratory rate Heart rate Oxygen saturation Oxygen saturation in Arterial blood by Pulse oximetry Systolic And Diastolic Provider Name and Address Organization Details Last Updated DateTime 5 144.78 cm 31.8 kg/m2 88844.0 8 g 96.8 [degF] 16 /min 83 /min 97 % 97 % 152/84 mm[Hg] Kia Hernández [facility] 5 12:10:55 Social History Question Answer Notes LastModified by Organizat ion Details LastModified Time Tobacco Smoking Status Former Smoker [facility] 05/11/2024 15:33:14 When Did You Quit Smoking? 16+yearssinc elastcigaret te Information not available 12/22/2024 What Was The Date Of Your Most Recent Tobacco Screening? 02/18/2025 [email or web address] Information not available 02/18/2025 Has Tobacco Cessation Counseling Been Provided? Yes Information not available 12/22/2024 On What Date Was Tobacco Cessation Counseling Provided? 12/22/2024 Information not available 12/22/2024 Sex: Unknown Functional Status None recorded. Mental Status None recorded. Family History Nothing Reported. Medical History No medical history recorded. Gynecological HistoryNo gynecological history recorded. Obstetrics History GPAL:G 0 P 0 0 0 0 Past Encounters Encounter ID Performer Location Encounter Start Date Encounter Closed Date Diagnosis/Indication Diagnosis SNOMED-CT Code Diagnosis ICD10 Code Diagnosis IMO Codes Diagnosis Note [id number] Claude Wills MD [address] [address] 02/11/2024 14:19:21 02/11/2024 17:09:21 Chronic obstructive pulmonary disease 68492807 J44.9 Chronic ki dney disease stage 3A 669150816 N18.31 Type 2 nova betes mellitus 98598180 E11.65 Moderate dementia 318372 3361 82727 F03.B3 Adult heal th examination 160284659 Z00.00 History of malignant neoplasm of colon 639967953 Z85.038 History of malignant neoplasm of ovary 849009048 Z85.43 Problem, a bnormal examination 04380682 Z00.01 Additional diagnosis detail: Abnormal physical evaluation Disorder o f kidney due to diabetes mellitus 993166213 E11.22 Additional diagnosis detail: Chronic kidney disease due to diabetes mellitus Long-term current use of drug therapy 597602886 Z79.899 Additional diagnosis detail: Other long haul truck driver (current) drug therapy [id number] JULIA Peterson [facility] ([place]) [address] [facility],[address] [place] [address], [address] [place] [address] 04/15/2024 14:02:16 04/15/2024 18:44:17 Primary gonarthrosis, bilateral 672070239 M17.0 [id number] PROCEDURE: The risks and benefits of viscosuppl [...] procedure well. There were no complicati ons. [id number] Iwona crump MD [facility] ([place]) [address] [place] [address] 04/21/2024 14:26:10 04/21/2024 15:33:59 Primary gonarthrosis, bilateral 177480461 M17.0 [id number] JULIA Peterson [facility] ([place]) [address] [facility],[address] [place] [address], [address] [place] [address] 04/29/2024 14:05:24 04/29/2024 18:31:25 Primary gonarthrosis, bilateral 150885742 M17.0 [id number] PROCEDURE: The risks and benefits of viscosuppl [...] procedure well. There were no complicati ons. [id number] Claude Wills MD [facility] ([place]) [address] [place] [address] 05/11/2024 15:07:57 05/11/2024 16:22:26 Type 2 diabetes mellitus 70308186 E11.65 Gastroesop hageal reflux disease 044328660 K21.9 25667719 Allergic rhinitis 250688 04 J30.9 5421700 Chronic th oracic back pain 8023616733 67289 M54.6 G89.29 93671513 Long-term current use of drug therapy 370471390 Z79.468 [id number] Additional diagnosis detail: Other [facility] (current) drug therapy [id number] Claude Wills MD [facility] ([place]) [address] [place] [address] 06/05/2024 15:02:13 06/05/2024 16:33:25 Right lower quadrant pain 859085566 R10.31 [id number] Claude Wills MD [facility] ([place]) [address] [place] [address] 06/19/2024 11:44:33 06/19/2024 12:57:07 Moderate dementia 4947181235 61168 F03.B3 [id number] Claude Wills MD [facility]) [address] [place] [address] 08/10/2024 12:02:55 08/10/2024 14:23:43 Moderate dementia 7649795345 58297 F03.B3 Generalize d anxiety disorder 08683720 F41.1 604702 [id number] Claude Wills MD [facility] ([place]) [address] [place] [address] 10/13/2024 10:03:25 10/13/2024 11:31:31 Rectal hemorrhage 48799231 K62.5 954001 Open wound of abdomen 73 9602610 S31.109D [id number] Type 2 nova betes mellitus 90614681 E11.65 Chronic th oracic back pain 3593454466 77113 M54.6 G89.29 [id number] Dmitry Roa MD [facility] 1st Bariatric s ([place]) [address] [facility],[address] [place] [address] 10/28/2024 11:45:20 10/28/2024 12:14:32 Chronic obstructive pulmonary disease 57502172 J44.9 Local infe ction of wound 59887082 T14.8XXA L08.9 425346 Open wound of abdomen 73 2218795 S31.109D [id number] [facility] ([place]) [address] [place] [address] 11/03/2024 08:59:45 11/16/2024 14:26:42 [id number] Dmitry Roa MD [facility]ariatric s ([place]) [address] [place] [address], [address] [place] [address] 11/03/2024 08:59:47 11/16/2024 13:15:19 [id number] Dmitry Roa MD [facility] 1st Bariatric s ([place]) [address] [facility],[address] [place] [address] 11/12/2024 12:17:12 11/12/2024 12:49:10 Localized infection of subcutaneous tissue 687178689 L08.9 [id number] Claude Wills MD [facility]) [facility] [place] [address] 11/16/2024 11:55:04 11/16/2024 14:03:18 Melena 5924028 K92.1 7672 Disorder o f kidney due to diabetes mellitus 210852810 E11.22 Additional diagnosis detail: Chronic kidney disease due to diabetes mellitus Type 2 nova betes mellitus 75388496 E11.65 Chronic ki dney disease stage 3 141419414 N18.31 [id number] Zohreh Hampton PA-C [facility] ([place]) [address] [place] [address] 12/01/2024 14:41:31 12/01/2024 16:10:46 Stool finding 862938510 R19.5 [id number] Melena 3188554 K92.1 7672 Increased frequency of defecation 50916403 R19.4 148366 [id number] Zohreh Hampton PA-C [facility]) [address] [place] [address] 12/22/2024 15:38:31 12/22/2024 16:44:04 Hematochezia 337902097 K92.1 7673 Altered corby wel function 76866624 R19.4 328877 History of small bowel obstruction 8489354913 23889658 Z87.19 903604 [id number] Dmitry Roa MD [address] Bariatric s ([place]) [address] [facility],[address] [place] [address] 01/06/2025 12:25:25 01/06/2025 12:45:18 Localized infection of subcutaneous tissue 230593257 L08.9 [id number] Claude Wills MD [facility] ([place]) [address] [place] [address] 02/18/2025 11:51:20 02/18/2025 13:04:20 Local infection of wound 20507100 T14.8XXA L08.9 515711 Open wound of abdomen 73 9946240 S31.109D [id number] Hematochezia 842784651 K 92.1 7673 Health Concerns Section Related Observation LastModified by Organization Detai ls LastModified Time None Recorded Concern Status LastModified by Organization Details LastModified Time None Recorded Advance Directives Directive None Recorded Payers Insurance Date Sequence Insurance Name Policy Number Policy Saleh Covered Member ID Saleh Member ID Guarantor Name 03/16/2025 1 [employer] - TOTAL RETIREE ADVANTAGE [facility] (MEDICARE REPLACEMENT/ ADVANTAGE - PPO) [id number] Di Drew [id number] Di Drew 02/18/2025 1 [employer] (MEDICARE REPLACEMENT/ ADVANTAGE - PPO) [id number] Di Drew [id number] Di Drew Notes Date Note Type Note Provider Name and Address Organization Details Recorded Time 11/16/2024 text/html Patient is here today for a 6 month check upShe uses [facility] in [place].She brought in a stool sample today. She states she has been having dark stools for about a week, week & a half. She was started on Augmentin around the same time this began but stopped taking it. Here today for routine f/u. 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 Following with [facility]pin and John. Had colonoscopy with [facility]pin in August 2021. Previously did serial CT and CEA levels. Most recent CEA and cbc, cmp reassuring. Abdominal symptoms are under good control currently. Does dicyclomine PRN. Takes creams for rosacea and is stable. Uses cyclobenzaprine PRN for muscle spasms. 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 Mir with [facility]. Had large lysis of adhesions intraoperatively and had a persistent tunneling of her surgical wound. Dr. Roa repaired this operatively in May 2021 with good success. Recent repair and packing still. M emma loss/Alzheimer's Dementia - has been a large issue over the past few years. Not typical dementia. Has failed mirtazapine and sertraline. Memantine at therapeutic doses was causing diarrhea. Now off and not missing it. Now on Rexulti due to some agitation. Type 2 DM - due for a1c and doing much better on glimepiride. CKD 3a - stable Claude Wills MD [address] [facility], [place], [id number], [place] - [facility] 12/18/2024 15:57:24 12/01/2024 text/html pt here today for bowel issues, pt described it looking like andreea. stool is black/ brown color sometimes green. symptoms for about 1 month and a half. denies any abdominal pain. This is a 89-year-old patient that comes in with her complaining of change in bowel habits. She states over the last 2-3 weeks, she has noticed her stools going from sometimes a andreea color, other times green and other times looking dark black. Dr. Wills saw her a little over a week ago, did a CBC which shows a very slight decrease but still within normal range on her CBC and she does have a low iron level. She has a history of colon cancer. Has had almost all of her large colon except for 10 inches resected in the past. She has seen Dr. Roa in the past. She notes that she also is having frequent bowel movements and she would not call this diarrhea at all or not having any constipation. She is just going frequently and it is like the consistency of andreea. She says if she just was not going as often as she was throughout the day and it is just very little bowel movements at a time, then she would not be as annoyed by this. She denies any fevers, abdominal pain, nausea, vomiting, blood in her stools. They cannot really do a colonoscopy on her anymore because she has such a short colon. Dr. Wills has attempted this and Dr. Roa and it just is merely impossible. She has not had a recent EGD done but really not complaining of any nausea or upper abdominal discomfort. Zohreh Hampton PA-C [address] [place] [address], [phone], [facility] 12/07/2024 15:01:10 12/22/2024 text/html pt here today for f/u from 12/01/2024. pt still c/o chronic diarrhea. did a fecal HGB on 12/16/2024 This is a pleasant 84-year-old patient that comes in complaining of blood in her stools, changes in her bowel habits which she has had for a long time as she has a very shortened bowel. Her last CBC showed her hemoglobin right at 12. She is a difficult stick so did not want to repeat her lab work last time. She did do a Hemoccult test but then that came back positive. She also has an oozing area that is being followed by surgery at her abdomen but I do not think she is oozing out blood from this that it would bring her low on her iron levels. Zohreh Hampton PA-C [address] [place] [address], [phone], [facility] 12/28/2024 22:17:23 01/06/2025 text/html ROS as noted in the HPI Patient is here for a wound recheck. Patient is doing wet-to-dry dressing changes to midline open wound that was intentionally left open so he can heal by secondary intention. Patient had a piece of infected mesh removed from that location. Currently the patient is doing well and reports some drainage from the dressing. She reports no nausea no vomiting no fever no chills. 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 Caregiver reports the wound opening is now very small but is producing a large amount of drainage described as brownish, dirty, and previously malodorous; odor is improved compared to prior after debridement/interventi on by Dr. Roa. There is minimal blood noted from the wound. They have been changing the dressing 3-4 times per day due to volume of drainage. Known prior culture showed Pseudomonas colonization. Due to recurrence of heavy drainage, they started leftover levofloxacin 500 mg yesterday (second dose taken today; one remaining). Patient and caregiver request a new course; prescription was sent to [facility] in [place] during the visit. Surgical removal of mesh was discussed as previously recommended as a last resort; provider and caregivers agree risks are very high, particularly given anesthesia risks in the context of dementia, and prefer medical management unless life-threatening. Rectal bleeding has decreased and is suspected to be hemorrhoidal. No current symptoms suggestive of hemodynamic compromise were reported. Plan made to compare labs with prior testing (CBC to assess hemoglobin, iron panel, and comprehensive metabolic panel including liver enzymes). If hemoglobin remains stable, no further immediate work-up is planned. Significant time spent addressing dementia-related behavioral concerns. Patient has episodes of severe memory impairment and altered mental status with no recollection afterwards, including calling police, accusing her of harm, and wandering; these have created safety and liability concerns. Patient has driven intermittently. Options for safer living arrangements were reviewed in detail (e.g., [place] memory-assisted living where her dog could visit; [place] not suitable given policies and behaviors; [facility] discussed as an Alzheimer's unit). Emphasis placed on safety and maintaining dignity; advised not to drive. Claude iWlls MD [address] [facility], [place], [phone], [facility] 02/18/2025 13:02:39 OBGyn Episode No OBEpisode recorded.
[2025-03-16 17:38] LABS: Hematocrit 35.7 % (35.0-42.0); Hemoglobin 11.3 g/dL (11.7-13.8); Immature Granulocyte Percent A 0.2 % (0.0-0.0); Lymphocytes Absolute Auto 1.54 K/mm3 (1.10-4.50); Mean Corpuscular HGB Conc 31.7 g/dL (32-36); Mean Corpuscular Hemoglobin 29.2 pg (27.0-31.0); Mean Corpuscular Volume 92.2 fL (78.0-102.0); Nucleated Red Blood Cells Absolute Auto 0.00 K/mm3 (0.00-0.00); Nucleated Red Blood Cells Perc 0.0 % (0-0.0); Platelet Count Result 147 K/mm3 (150-420); Red Blood Count 3.87 M/mm3 (4.20-5.40); White Blood Count 5.7 K/mm3 (4.8-10.8)
[2025-03-16 17:39] LABS: Add Urine Microscopic? YES; Appearance Urine Sl Cloudy (Clear); Glucose Urine UA 2+ (Negative); Leukocyte Esterase Ur 2+ LEU/UL (Negative); Nitrate Urine Negative (Negative); Specific Grav Ur 1.020 (1.010-1.020)
--- NOTE | 2025-03-16 17:41 | PC.NURSE ---
pt to xray for ct per stretcher.
[2025-03-16 17:51] LABS: Acetaminophen < 10 ug/mL (10-30); Ammonia < 9 umol/L (9-30)
[2025-03-16 17:57] LABS: Cannabinoid Screen Urine Negative (Negative)
[2025-03-16 17:59] LABS: Sodium 141 mmol/L (137-145)
[2025-03-16 18:00] LABS: Anion Gap 11 mmol/L (4-12); Bilirubin,Total 0.5 mg/dL (0.2-1.3); Blood Urea Nitrogen 14 mg/dL (7-17); Calcium 9.3 mg/dL (8.4-10.2); Carbon Dioxide 26 mmol/L (22-30); Chloride 104 mmol/L (98-107); Estimated CRCL calculation 27 ml/min; Estimated Glomerular Filt Rate 54; Glucose 282 mg/dL (65-110); Magnesium 2.2 mg/dL (1.6-2.3); Osmolality Calculated 302 mOsm/kg (285-295); Potassium 4.4 mmol/L (3.4-5.0)
[2025-03-16 18:01] LABS: Alanine Aminotransferase 28 U/L (6-35); Albumin Level 4.2 g/dL (3.5-5.1); Alkaline Phosphatase 72 U/L (38-126); Aspartate Amino Transferase 34 U/L (14-36); Creatine Kinase 164 U/L (30-135); Lipase 54 U/L (23-300); Total Protein 7.6 g/dL (6.3-8.2)
--- NOTE | 2025-03-16 18:20 | PC.NURSE ---
pt up to bathroom x [address] navas.
[2025-03-16 18:21] LABS: Thyroid Stimulating Hormone 0.219 uIU/mL (0.465-4.680)
[2025-03-16] MEDS: CIPROFLOXACIN 500 MG TAB PO (18:41)
[2025-03-16 19:11] VITALS: BP 138/74; PULSE 75; RESP 20; TEMP 36.8; O2SAT 97
--- NOTE | 2025-03-19 13:56 | PC.NURSE ---
PRELIMINARY URINE CULTURE REPORT; GRAM NEGATIVE BACILLI ISOLATED
--- NOTE | 2025-03-21 01:47 | PC.NURSE ---
Final urine culture reports + Klebsiella pneumoniae. Pt was d/c home on Cipro and is taking appropriated antibx.
== END 2025-03-16 19:11 | disposition home or self-care (01) ==
PROVIDERS: Emergency Provider Internal Medicine Critical Care Medicine; PCP Family Medicine
DX: F03.92 Unspecified dementia, unspecified severity, with psychotic disturbance (principal); N39.0 Urinary tract infection, site not specified; Z90.49 Acquired absence of other specified parts of digestive tract; Z79.899 Other long term (current) drug therapy
CPT/HCPCS: 36415; 70450; 80053; 80143; 80307; 81001; 82077; 82140; 82550; 83605; 83690; 83735; 84443; 85025; 87086; 87186; 93005; 99284; A9270